=== PATIENT | male | born 1945 | race Caucasian/White ===

== ENCOUNTER 2019-10-23 08:34 | Outpatient (CLI) | payer MEDICARE, SELFPAY ==
--- NOTE | 2019-11-04 14:01 | SLEEP_ITS ---
Splint Night Sleep Study DATE OF STUDY: 10/23/2019 REQUESTING PHYSICIAN: Dr. Dennys Galvan. REASON FOR THE STUDY: Sleep apnea, unspecified. HISTORY: This patient is a 74-year-old male, 74 inches tall, weighing 260 pounds with a body mass index of 33.4. He has complaints of loud snoring, daytime fatigue, and excessive daytime sleepiness. He has had this problem starting over 10 years ago. His recorded him sleeping loudly and having apneas. His sleep is very poor quality. He has excessive mood instability with angriness after he does not sleep well. He also has chronic depression, has gained weight over the last 10 years. He rarely awakens from sleep feeling short of breath. He frequently awakens at night with heartburn and belching. He constantly snores loudly enough that others complain about it and constantly has trouble sleeping with a cold. He does not gasp for breath at night. He rarely sweats excessively at night or notices heart pounding irregularly at night. He constantly falls asleep during the day, constantly involuntarily, but not while driving. He frequently has loss of muscle tone with strong emotion. He occasionally has daytime difficulty due to excessive sleepiness. He does not feel paralyzed on waking or falling asleep. He frequently has vivid dreamlike scenes upon awakening or falling asleep. He is never afraid to go to sleep. He occasionally has nightmares. He occasionally remembers his dreams. He frequently has racing thoughts. He constantly feels sad, depressed, and anxious. He frequently has muscular tension. He occasionally kicks at night, has crawly achy feelings in the legs and has leg pain at night. He does not grind his teeth during sleep. He constantly is bothered by pain during the day, rarely is awakened by pain at night, constantly wakes up in the morning feeling stiff with sore achy muscles and pain in the neck and spine. He has memory problems, libido problems, concentration difficulties, and feels tense. Normal bedtime is between 9:30 and 10 p.m., falling asleep within 10 to 15 minutes waking at least 6 times at night. He will urinate with every awakening. He does not drink excessive amounts of fluids. He will lie awake anywhere from 15 minutes to 30 minutes trying to go back to sleep. He does not go out after 7:00 p.m. often and his social life is impacted by his excessive sleepiness. He does take naps. A short nap is not refreshing. He is drowsy in the morning for an hour or longer. MEDICAL COMORBIDITIES: Loud snoring, history of asthma, shortness of breath, depression, fatigue, history of prostate cancer, and low testosterone. MEDICATIONS: 1. Losartan 50 mg a day. 2. Aspirin 81 mg a day. 3. Diazepam 5 mg as needed for anxiety. 4. Ibuprofen 200 mg 2 tablets q.8 hours p.r.n. pain. 5. Methylphenidate 10 mg b.i.d. 6. Prilosec 20 mg daily. 7. Simvastatin 10 mg in the evening. 8. Trintellix 10 mg daily. HABITS: Never smoked tobacco. Caffeine, 2 to 3 cups in the morning. Alcohol none. DESCRIPTION OF THE STUDY: On the Dixon Sleepiness Scale, his score is 10. This was conducted as a split night nocturnal polysomnogram using the [employer] multiple channel system including EOG, EEG, submental EMG, EKG, nasal and oral airflow using thermistors and nasal pressure sensors, chest and abdominal belts, body position data, and pulse oximetry. This study was scored using CMS guidelines. During the baseline portion, the recording time was 156.4 minutes. Sleep time was 136 minutes. Sleep efficiency was 87%. Sleep latency was short at 7.9 minutes. There was no REM. The patient had 7 awakenings. He spent 12.5 minutes awake after sleep onset. Stage 1 sleep was 12.1%, stage 2 sleep 87.9%. No stage III and no stage REM.
== END 2019-10-23 08:35 | disposition home or self-care (01) ==
LOC: ANHCSM 08:35
DX: R06.83 Snoring (principal); G47.33 Obstructive sleep apnea (adult) (pediatric); Z68.33 Body mass index [BMI] 33.0-33.9, adult
CPT/HCPCS: 95811

== ENCOUNTER → 2019-10-30 13:09 | Outpatient (CLI) | payer MEDICARE, SELFPAY ==
--- NOTE | ~2019-10-30 | XR_ITS ---
EXAMINATION: XR hip RT min 2V DATE: 10/30/2019 13:41 INDICATION: Right hip pain post fall TECHNIQUE: Anteroposterior and cross-table lateral views of the right hip were obtained. COMPARISON: None. FINDINGS: Alignment is normal. No fracture. Mild chondrocalcinosis along the right femoral head. There is only minimal nonuniform joint space narrowing and tiny marginal osteophytes along the femoral head consist ent with very mild osteoarthritis. Surgical clips project over the pubis. Heterotopic ossicle project s over the central pelvis along with several smaller bilateral phleboliths. IMPRESSION: 1. Very mild right hip osteoarthritis. No acute osseous abnormality. Reviewed, dictated and finalized at location A.
== END ==
DX: M25.551 Pain in right hip (principal); C61 Malignant neoplasm of prostate; R29.898 Other symptoms and signs involving the musculoskeletal system; M54.5 Low back pain; M16.11 Unilateral primary osteoarthritis, right hip; W19.XXXA Unspecified fall, initial encounter
CPT/HCPCS: 73502

== ENCOUNTER 2019-12-05 07:48 | Outpatient (CLI) | payer MEDICARE, SELFPAY ==
--- NOTE | ~2019-12-05 | NM_ITS ---
EXAMINATION: NM ramiro stress w perfusion DATE: 12/05/2019 11:38 INDICATION: Shortness of breath TECHNIQUE: Rest images were obtained following intravenous administration of 10.9 mCi Tc99m tetrofosm in (Myoview). The patient was infused intravenously with Lexiscan (Regadenoson). Then, 33.3 mCi Tc99m tetrofosmin (Myoview) was administered intravenously, and stress images were obtained. Data was cadence nstructed into short axis and horizontal and vertical long axis SPECT images. Gated SPECT images were also obtained. COMPARISON: None. FINDINGS: There is no definite reversible or fixed perfusion abnormality to suggest ischemia or infar ction. There is normal left ventricular chamber size, wall motion and ejection fraction. Left ventr icular ejection fraction measures >70%. IMPRESSION: 1. Normal myocardial perfusion at rest and during stress. 2. Left ventricular ejection fraction measuring >70%. Reviewed, dictated and finalized at location A.
--- NOTE | 2019-12-05 08:52 | EST_ITS ---
Patient Info Name: Timmy Morocho Age: 74 years : 1945 Gender: Male Ht: 74 in Wt: 265 lbs BSA: 2.54 m2 Exam Date: 12/05/2019 9:02 AM Exam Location: [facility] Stress Patient Status: Outpatient Admit Date: 12/05/2019 Staff Ordering Physician: Tayla Dinero MD Attending Provider: Tayla Dinero MD Exercise Technologist: Kaylee Rosario RDCS Exercise Physician: Saji Rodriguez DO Exam Type: CA stress ramiro w NM Study Info Indications R06.02 - Shortness of breath A regadenoson stress test was performed. Summary 1. 1. Negative lexiscan stress test for ischemic ST changes by ECG criteria. 2. 2. Stable hemodynamics throughout the test. 3. 3. Nuclear scan to follow and will be reported separately. Please correlate with it. 4. 4. Patient informed of the above results. Protocol: Lexiscan Stress ECG Details Stage: REST Duration (min): 4 min : 57 sec HR (bpm): 74 SBP (mmHg): 130 DBP (mmHg): 76 Stage: REST Duration (min): 11 min : 6 sec HR (bpm): 72 SBP (mmHg): 130 DBP (mmHg): 76 Stage: STAGE 1 Duration (min): 1 min : 0 sec HR (bpm): 76 SBP (mmHg): 123 DBP (mmHg): 82 Stage: RECOVERY Duration (min): 1 min : 0 sec HR (bpm): 80 SBP (mmHg): 128 DBP (mmHg): 81 Stage: RECOVERY Duration (min): 2 min : 0 sec HR (bpm): 78 SBP (mmHg): 128 DBP (mmHg): 81 Stage: RECOVERY Duration (min): 3 min : 0 sec HR (bpm): 76 SBP (mmHg): 128 DBP (mmHg): 81 Stage: RECOVERY Duration (min): 3 min : 43 sec HR (bpm): 76 SBP (mmHg): 117 DBP (mmHg): 83 Rest HR: 72 bpm Peak HR: 81 bpm Rest Sys BP: 130 mmHg Peak Sys BP: 128 mmHg Max Pred HR: 146 bpm % Max Pred HR: 55 % Target HR: 124 bpm Max RPP: 10,368 bpm*mmHg Termination Reason: Completed protocol Cardiac Symptoms: Shortness of breath Total Time: 1 min : 0 sec Rest Mooney BP: 76 mmHg Peak Mooney BP: 81 mmHg Total Dose: 0.4 mg Resting ECG Sinus rhythm, IRBBB, cannot r/o septal infarct, age indeterminate, low voltage in precordial leads. Stress ECG No ST changes. Arrhythmias None. Report Signatures
--- NOTE | 2019-12-09 13:48 | WPDSIXMINUTE ---
Six Minute Walk Six Minute Walk: DOS: 12/05/2019 REQUESTING: Dr Dinero REASON FOR TESTING: Exertional dyspnea SIX MINUTE WALK This test was conducted per ATS guidelines. Initial saturation was 95%, heart rate 82. The patient walked for 6 minutes without stopping, saturation ranged from 89-98%. Pulse ranged from 81-97. Distance walked was 1000 ft/305 meters. IMPRESSION: Desaturation without kashif hypoxemia. Patient does not require supplemental oxygen with exertion. Distance walked is at adequate for age.
--- NOTE | 2019-12-09 13:52 | WPDPFTINT ---
PFT Interpretation PFT Interpretation: DOS: 12/05/2019 REQUESTING: Dr Saji Rodriguez REASON FOR TESTING: Dyspnea PULMONARY FUNCTION TESTS Results are reproducible and reliable. Spirometry: FEV1 107%, FVC 101%, FEV1% 77%, all normal. No bronchodilator was given. Lung volumes: TLC 105%, normal. RV normal. Normal airway resistance. Diffusion: DLCO 74%, normal. Flow volume loop: Abnormal inspiratory loop suggestive of an extrathoracic process, possible vocal cord dysfunction. the initial portion of the inspiration is normal then rapidly drops off. IMPRESSION: Normal spirometry, lung volumes, and diffusion. Abnormal flow volume loop suggestive of transient inducible laryngeal obstruction such as vocal cord dysfunction. Tayla Dinero MD
== END 2019-12-05 07:49 | disposition home or self-care (01) ==
PROVIDERS: Visit Provider Internal Medicine Critical Care Medicine
DX: R06.02 Shortness of breath (principal)
CPT/HCPCS: 78452; 93017; 94618; A9502; J2785

== ENCOUNTER 2020-04-23 12:51 | Inpatient (IN) | payer MEDICARE, SELFPAY ==
--- NOTE | ~2020-04-23 | XR_ITS ---
EXAMINATION: XR chest 1V portable 04/23/2020 15:33 INDICATION: Shortness of breath and cough PROCEDURE: AP portable chest COMPARISON: 07/08/2009 FINDINGS: The lungs are clear. The cardiomediastinal silhouette is within normal limits. There are no pleural effusions. There is no pneumothorax suspected. Old healed left clavicular fracture. IMPRESSION: 1: NO ACUTE CARDIOPULMONARY DISEASE. Reviewed, dictated and finalized at location B.
--- NOTE | ~2020-04-23 | XR_ITS ---
XR hip LT 2V w AP pelvis 04/23/2020 13:58 Indication: Left hip pain after fall Procedure: AP pelvis and 2 views left hip Comparison: No prior studies for comparison. Findings: There is a comminuted displaced left femoral intertrochanteric fracture with varus angulati on. Moderate lower lumbar spondylosis. Pelvic rings are intact. No significant soft tissue abnormalit y. Impression: 1: Comminuted displaced left femoral intertrochanteric fracture with varus angulation. Reviewed, dictated and finalized at location B. Impression: 1: Comminuted displaced left femoral intertrochanteric fracture with varus angu lation.
--- NOTE | ~2020-04-23 | XR_ITS ---
EXAMINATION: XR surgery orthopedic DATE: 04/24/2020 10:55 INDICATION: Intertrochanteric fracture of proximal left femur. TECHNIQUE: 5 intraoperative fluoroscopic views of left hip were obtained. I was not present. Fluorosc opy exposure time was 116 seconds. COMPARISON: Left hip radiographs 04/23/2020 FINDINGS: There is a comminuted intertrochanteric fracture of proximal left femur. The main distal fr acture fragment demonstrates near-anatomic alignment. There is internal fixation with antegrade intra medullary dwight, femoral head/neck screw, and distal interlocking screw. IMPRESSION: 1. Comminuted intertrochanteric fracture of proximal left femur status post open reduction internal f ixation. Reviewed, dictated and finalized at location A. IMPRESSION: 1. Comminuted intertrochanteric fracture of proximal left femur status post ope n reduction internal fixation.
[2020-04-23 13:05] VITALS: BP 174/104; PULSE 75; RESP 18; TEMP 36.9; O2SAT 95
--- NOTE | 2020-04-23 13:28 | ED.LOWEXIN ---
HPI - Extremity Injury (Lower) General Chief Complaint: Extremity Injury, Lower Stated Complaint: left leg and hip pain Time Seen by Provider: 04/23/20 13:00 Source: patient Mode of arrival: ambulatory Limitations: no limitations History of Present Illness HPI Narrative: Patient is a 75-year-old who presents per EMS from home for evaluation of left hip injury patient was ambulating and notes that he tripped secondary to left foot drop which is chronic in nature patient on arrival to emergency department notes minimal to no pain but the pain does worsen with activity and movement patient also notes difficulty with using the left leg patient notes pain to the left hip that radiates into the thigh patient denies other injuries or complaints specifically no syncope loss of consciousness Related Data Home Medications Medication Instructions Recorded Confirmed aspirin 81 mg chewable tablet 81 mg PO DAILY 11/24/19 03/09/20 diazepam 5 mg tablet 5 mg PO BID PRN 11/24/19 03/09/20 ibuprofen 200 mg tablet 200 mg PO Q6H PRN 11/24/19 03/09/20 losartan 50 mg tablet 50 mg PO DAILY 11/24/19 03/09/20 simvastatin 10 mg tablet 10 mg PO DAILY 11/24/19 03/09/20 Allergies Allergy/AdvReac Type Severity Reaction Status Date / Time Cephalosporins Allergy Severe pain Verified 04/23/20 13:17 Penicillins Allergy Severe Difficulty Verified 04/23/20 13:17 Breathing Review of Systems Review of Systems: All systems reviewed & are unremarkable except as noted in HPI and below PMFSH Past Medical History Medical History Asthma At risk for falls Constipation Depression Dyspnea Elevated blood pressure reading High cholesterol History of MRSA infection Left leg weakness Left sciatic nerve pain Obstructive sleep apnea Prostate cancer Shortness of Breath Sleep apnea Snoring Surgical History Surgical History FH: total knee replacement H/O arthroscopy of knee H/O laminectomy Social History Social History Smoking status: Never smoker Alcohol intake: former Substance use: never Additional living arrangements comments: 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 HEAD: Normocephalic, atraumatic. EYES: PERRLA and EOMI. ENT: Nares clear, no rhinorrhea or epistaxis. Mucous membranes moist. Oropharynx without tonsillar hypertrophy exudate or other lesions. NECK: Supple. No adenopathy or masses. CHEST: Clear to auscultation. No respiratory distress. No wheezes rales or rhonchi HEART: Regular rate and rhythm. No murmur heard. Normal peripheral pulses. ABDOMEN: Soft, nontender, nondistended. EXTREMITIES: Tenderness of the left hip with shortening and external rotation. SKIN: Warm, dry, no rash. NEURO: No focal deficits. Alert and oriented x3. Cranial nerves II through XII grossly intact PSYCH: Normal mood and affect. Course Course Emergency Course: Patient will be admitted to the hospital with hospitalist admission with orthopedic surgery consult patient in the room hemodynamically stable and is comfortable with this plan Consultations Consultation #1: Spoke with orthopedic surgery at [facility] who was unable to take care of the patient. And recommended seeing if a physician orthopedist at [facility] can facilitate caring for the patient Date: 04/23/20 Time: 15:25 Consultation #2: Discussed case with Dr. Cee orthopedist who has agreed to accept the patient Date: 04/23/20 Time: 15:25 Vital Signs Vital signs: Vital Signs Temperature 98.5 F 04/23/20 13:05 Pulse Rate 75 04/23/20 13:05 Respiratory Rate 18 04/23/20 13:05 Blood Pressure 174/104 H 04/23/20 13:05 Pulse Oximetry 95 04/23/20 13:05
--- NOTE | 2020-04-23 15:18 | ECG_ITS ---
Measurements Intervals [place] Rate: 76 P: -12 DC: 196 QRS: -44 QRSD: 70 T: -13 QT: 294 QTc: 332 Interpretive Statements SINUS RHYTHM RSR' IN V1 OR V2, CONSIDER RIGHT VENTRICULAR HYPERTROPHY OR RIGHT VCD BORDERLINE T WAVE ABNORMALITY- INFERIOR LEADS BASELINE ARTIFACT- I, II, AVR, AVL, V1 BORDERLINE ECG Electronically Signed On 04-23-2020 15:48:51 CDT by Saji Rodriguez D.O.
[2020-04-23] MEDS: MORPHINE SULFATE (*CRX) 4 MG/ML INJ IV PUSH ×3 (15:53→20:14)
[2020-04-23 15:57] LABS: Basophils Absolute Auto 0.1 K/mm3 (0.0-0.1); Basophils Percent Auto 0.7 % (0.2-1.2); Eosinophils Absolute Auto 0.2 K/mm3 (0-0.3); Eosinophils Percent Auto 1.8 % (0-4.4); Hematocrit 40.9 % (42.0-52.0); Hemoglobin 14.2 g/dL (14.0-18.0); Immature Granulocyte Absolute 0.04 K/mm3 (0.00-0.031); Immature Granulocyte Percent A 0.4 % (0-0.5); Lymphocytes Absolute Auto 0.94 K/mm3 (0.9-3.2); Lymphocytes Percent Auto 10.2 % (18.3-44.2); Mean Corpuscular HGB Conc 34.7 g/dl (32-36); Mean Corpuscular Volume 89.3 fl (80-100); Mean Platelet Volume 9.6 fl (7.4-10.4); Monocytes Absolute Auto 0.7 K/mm3 (0.1-0.6); Monocytes Percent Auto 7.5 % (2.6-8.5); Neutrophils Absolute Auto 7.3 K/mm3 (1.3-6.7); Neutrophils Percent Auto 79.4 % (45.5-73.1); Platelet Count Result 215 k/mm3 (150-375); Red Blood Count 4.58 M/mm3 (4.6-6.20); Red Cell Distribution Width 13.1 % (11.5-14.5); White Blood Count 9.2 K/mm3 (4.5-10.0)
[2020-04-23 16:00] VITALS: BP 158/96; PULSE 93; RESP 18; O2SAT 94
[2020-04-23 16:06] LABS: Prothrombin Time 12.9 Seconds (11.1-14.7)
[2020-04-23 16:07] LABS: Partial Thromboplastin Time 26.3 SECONDS (22.3-36.8)
[2020-04-23 16:13] LABS: Alanine Aminotransferase 35 U/L (4-50); Albumin Level 4.2 g/dL (3.5-5.1); Alkaline Phosphatase 78 U/L (38-126); Anion Gap 8 mmol/L (8-16); Aspartate Amino Transferase 41 U/L (17-59); Bilirubin,Total 0.8 mg/dL (0.2-1.3); Blood Urea Nitrogen 28 mg/dL (9-20); Calcium 9.5 mg/dL (8.4-10.2); Carbon Dioxide 24 mmol/L (22-30); Chloride 100 mmol/L (98-107); Estimated CRCL calculation 98 ml/min; Estimated Glomerular Filt Rate > 60; Glucose 107 mg/dL (75-110); Potassium 4.6 mmol/L (3.4-5.0); Sodium 132 mmol/L (137-145)
--- NOTE | 2020-04-23 16:26 | PM.IMHP ---
H&P: HPI History of Present Illness Date/Time: 04/23/20 16:26 Chief complaint: Closed left hip fracture Narrative: Timmy Morocho is a 75 year old male with PMHx significant for HTN, LLE weakness, Asthma, L sciatica, RICH, Hyperlipidemia, patient had mechanical fall at home he has L foot drop and tripped with the carpet, fell over his L leg then he noticed that it was pointing a different direction and was very painful. Patient was unable to stand on his own. Was brought to ED where he was found to have a L hip fracture. Patient has been in his usual state of health, no LOC, no chest pain, no sob, no cough, no sputum production, no fevers, no rigors, no chills, no leg swelling, no abdominal pain/n/v/diarrhea. Review of Systems Review of Systems: Narrative: Was on his usual state of health, had fall at home, mechanical, no other complains. Constitutional: Constitutional: Reports as per HPI and Reports no additional constitutional complaints Eyes: Eyes: Reports as per HPI and Reports no additional eye complaints ENT: Reports system reviewed and no additional complaints, except as documented and Reports as per HPI Cardiovascular: Cardiovascular: Reports as per HPI and Reports no additional cardiovascular complaints Respiratory: Respiratory: Reports as per HPI and Reports no additional respiratory complaints Gastrointestinal: Gastrointestinal: Reports as per HPI and Reports no additional gastrointestinal complaints Musculoskeletal: Musculoskeletal: Reports as per HPI Neurologic: Reports system reviewed and no additional complaints, except as documented and Reports as per HPI [facility] Past Medical History Medical History Asthma At risk for falls Constipation Depression Dyspnea Elevated blood pressure reading High cholesterol History of MRSA infection Left leg weakness Left sciatic nerve pain Obstructive sleep apnea Prostate cancer Shortness of Breath Sleep apnea Snoring Surgical History Surgical History FH: total knee replacement H/O arthroscopy of knee H/O laminectomy Social History Social History Smoking status: Never smoker Alcohol intake: never Substance use: never Additional living arrangements comments: 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; 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, 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 Gender identity (if verbalized by the patient): Male Spiritual care concerns: No Meds Home Medications and Allergies Home Medications Medication Instructions Recorded Confirmed Type aspirin 81 mg chewable tablet 81 mg PO HS 11/24/19 04/23/20 History simvastatin 10 mg tablet 10 mg PO HS 11/24/19 04/23/20 History albuterol sulfate 90 mcg/actuation 1 puff INHALATION Q6H PRN 30 Days 03/09/20 04/23/20 Rx aerosol inhaler #8.5 gm budesonide-formoterol HFA 160 2 puff INHALATION Q12H 30 Days 03/09/20 04/23/20 Rx mcg-4.5 mcg/actuation aerosol #10.2 gm inhaler dextroamphetamine-amphetamine 10 mg PO DAILY 04/23/20 04/23/20 History [Adderall XR] diazepam 2 mg PO BID 04/23/20 04/23/20 History escitalopram oxalate [Lexapro] 5 mg PO DAILY 04/23/20 04/23/20 History fluticasone propionate [Flonase 1 spray INTRANASAL BID 04/23/20 04/23/20 History Allergy Relief] lisinopril 10 mg PO DAILY 04/23/20 04/23/20 History tizanidine 4 mg PO BID PRN 04/23/20 04/23/20 History Allergies Allergy/AdvReac Type Severity Reaction Status Date / Time Cephalosporins Allergy Severe pain Verified 04/23/20 13:17 Penicillins Allergy Severe Difficulty Verified 04/23/20 13:17 Breathing Vital Signs Vital Signs - 24 hr 04/23/20 13:05 Temperature 98.5 F Pulse Rate 75 Respiratory Rate 18 Blood Pressure 174/104 H Pulse Oximetry 95 Exam Narrative: Exam Narrative: Well nourished, well developed, well appearing, in bed in no acute
--- NOTE | 2020-04-23 16:59 | PC.NURSE ---
Called to give report to nurse. Was informed by Arcelia that she will have to call you back .
[2020-04-23 18:00] VITALS: BP 157/100; PULSE 90; RESP 20; TEMP 37; O2SAT 97; BMI 34.2
[2020-04-23] MEDS: LACTATED RINGERS 1,000 ML 75 ML IV CONT (18:12)
--- NOTE | 2020-04-23 18:32 | ADMGEN ---
This patient, Timmy Morocho, was admitted to 2 Medical Room 255-. Patient/family oriented to hospital policies and general routines including ID bracelet, bed and alarms, visiting hours, pain management, procedures, bathroom and other care routines, personal items, smoking policy, room service/diet, and visiting hours. Valuables list has been completed. Information on how to activate the Rapid Response Team has been discussed. Patient/Family are encouraged to report perceived risks to care and to ask questions if they do not understand what they are told or what they should do.
--- NOTE | 2020-04-23 19:04 | WPDANESEPP ---
Anes - Eval Pre Procedure Procedure: Operation Date: 04/24/20 09:30 Proposed Procedures p Left Intertrochanteric Nail - Nguyễn Cee MD Date/Time: 04/23/20 19:04 Pre Op Diagnosis: Closed left hip fracture Patient Data Age: 75 Gender: M Height: 6 ft 2 in Weight: 121.1 kg Last Vital Signs Temp 98.6 F 04/23/20 18:00 Pulse 90 04/23/20 18:00 Resp 20 04/23/20 18:00 BP 157/100 H 04/23/20 18:00 Pulse Ox 97 04/23/20 18:00 Allergies Allergy/AdvReac Type Severity Reaction Status Date / Time Cephalosporins Allergy Severe pain Verified 04/23/20 13:17 Penicillins Allergy Severe Difficulty Verified 04/23/20 13:17 Breathing Home Medications Medication Instructions Recorded Confirmed Type aspirin 81 mg chewable tablet 81 mg PO HS 11/24/19 04/23/20 History simvastatin 10 mg tablet 10 mg PO HS 11/24/19 04/23/20 History albuterol sulfate 90 mcg/actuation 1 puff INHALATION Q6H PRN 30 Days 03/09/20 04/23/20 Rx aerosol inhaler #8.5 gm budesonide-formoterol HFA 160 2 puff INHALATION Q12H 30 Days 03/09/20 04/23/20 Rx mcg-4.5 mcg/actuation aerosol #10.2 gm inhaler dextroamphetamine-amphetamine 10 mg PO DAILY 04/23/20 04/23/20 History [Adderall XR] diazepam 2 mg PO BID 04/23/20 04/23/20 History escitalopram oxalate [Lexapro] 5 mg PO DAILY 04/23/20 04/23/20 History fluticasone propionate [Flonase 1 spray INTRANASAL BID 04/23/20 04/23/20 History Allergy Relief] lisinopril 10 mg PO DAILY 04/23/20 04/23/20 History tizanidine 4 mg PO BID PRN 04/23/20 04/23/20 History Laboratory Tests 04/23/20 04/23/20 04/23/20 15:39 15:39 15:39 WBC 9.2 K/mm3 K/mm3 (4.5-10.0) RBC 4.58 M/mm3 L M/mm3 (4.6-6.20) Hgb 14.2 g/dL g/dL (14.0-18.0) Hct 40.9 % L % (42.0-52.0) MCV 89.3 fl fl (80-100) MCH 31.0 pg pg (26-34) MCHC 34.7 g/dl g/dl (32-36) RDW 13.1 % % (11.5-14.5) Plt Count 215 k/mm3 k/mm3 (150-375) MPV 9.6 fl fl (7.4-10.4) Immature Gran % (Auto) 0.4 % % (0-0.5) Neut % (Auto) 79.4 % H % (45.5-73.1) Lymph % (Auto) 10.2 % L % (18.3-44.2) [place] % (Auto) 7.5 % % (2.6-8.5) Eos % (Auto) 1.8 % % (0-4.4) Baso % (Auto) 0.7 % % (0.2-1.2) Lymph # (Auto) 0.94 K/mm3 K/mm3 (0.9-3.2) [place] # (Auto) 0.7 K/mm3 H K/mm3 (0.1-0.6) Eos # (Auto) 0.2 K/mm3 K/mm3 (0-0.3) Baso # (Auto) 0.1 K/mm3 K/mm3 (0.0-0.1) Abs Immat Gran (auto) 0.04 K/mm3 H K/mm3 (0.00-0.031) Absolute Neuts (auto) 7.3 K/mm3 H K/mm3 (1.3-6.7) Absolute Nucleated RBC 0.0 K/mm3 K/mm3 (0.0-0.012) Nucleated RBC % 0.0 % % (0.0-0.2) PT INR APTT Sodium 132 mmol/L L mmol/L (137-145) Potassium 4.6 mmol/L mmol/L (3.4-5.0) Chloride 100 mmol/L mmol/L (98-107) Carbon Dioxide 24 mmol/L mmol/L (22-30) Anion Gap 8 mmol/L mmol/L (8-16) BUN 28 mg/dL H mg/dL (9-20) Creatinine 0.80 mg/dL mg/dL (0.7-1.3) Estim Creat Clear Calc 98 ml/min ml/min Estimated GFR > 60 (59 - ) Glucose 107 mg/dL mg/dL (75-110) Calcium 9.5 mg/dL mg/dL (8.4-10.2) Total Bilirubin 0.8 mg/dL mg/dL (0.2-1.3) AST 41 U/L U/L (17-59) ALT 35 U/L U/L (4-50) Alkaline Phosphatase 78 U/L U/L (38-126) Total Protein 7.0 g/dL g/dL (6.3-8.2) Albumin 4.2 g/dL g/dL (3.5-5.1) Blood Type A Positive Antibody Screen Negative 04/23/20 15:39 WBC RBC Hgb Hct MCV MCH MCHC RDW Plt Count MPV Immature Gran % (Auto) Neut % (Auto) Lymph % (Auto) [place] % (Auto) Eos % (Auto) Baso % (Auto)
[2020-04-23] MEDS: lisinopriL 10 MG TABLET PO (20:10)
[2020-04-23] MEDS: diazePAM (*CRX) 2 MG TABLET PO (20:10)
[2020-04-23] MEDS: SIMVASTATIN 10 MG TABLET PO (20:10)
[2020-04-23] MEDS: FAMOTIDINE 20 MG/2 ML VIAL IV PUSH (20:10)
[2020-04-23 22:00] VITALS: BP 143/86; PULSE 86; RESP 16; TEMP 36.7; O2SAT 96
[2020-04-23] MEDS: HYDROmorphone HCL INJ (*CRX) 1 MG/ML SYR IV PUSH (22:55)
[2020-04-23] MEDS: DEXTROSE 5%/LACTATED RINGERS 1,000 ML 75 ML IV CONT (22:56)
[2020-04-24] VITALS (14 sets, daily range): BP systolic 121–162; BP diastolic 59–96; PULSE 72–100; RESP 12–20; TEMP 36.4–37.4; O2SAT 92–100
[2020-04-24] MEDS: diazePAM (*CRX) 5 MG TABLET PO (00:47)
[2020-04-24 08:05] LABS: Hematocrit 36.5 % (42.0-52.0); Hemoglobin 12.6 g/dL (14.0-18.0); Mean Corpuscular HGB Conc 34.5 g/dl (32-36); Mean Corpuscular Hemoglobin 31.2 pg (26-34); Mean Corpuscular Volume 90.3 fl (80-100); Mean Platelet Volume 9.7 fl (7.4-10.4); Platelet Count Result 187 k/mm3 (150-375); Red Blood Count 4.04 M/mm3 (4.6-6.20); Red Cell Distribution Width 13.2 % (11.5-14.5); White Blood Count 7.5 K/mm3 (4.5-10.0)
--- NOTE | 2020-04-24 08:30 | PM.CNOR ---
Assessment and Plan Additional Plan This gentleman is a 75-year-old male who I have seen before as the patient who was walking in the kitchen to get a medial caught his toe of his left foot on the floor causing him to fall and sustain a comminuted 4 part left intertrochanteric hip fracture. This is displaced. He was brought to the emergency room. His past medical history is significant for severe back problems. He developed a footdrop on the left in 1969 and in 1973 he had a lumbar decompression. Because of worsening symptoms in the past few years 3 years ago he underwent a and extensive laminectomy in his lumbar spine because of recurrence of severe foot drop on the left. 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 He has foot drop. He has numbness globally in the left foot. This footdrop he believes contributed to his falling yesterday. His past medical history is significant for allergy to penicillin which he states was anaphylactic shock as a child. He has a history of asthma as a child. He states the listing of cephalosporin as an allergy is inaccurate as he has never had an allergic reaction to cephalosporin and he believes they voiced been avoided. Two years ago he was diagnosed with prostate cancer and had external beam therapy and Lupron treatment to lower his testosterone levels. As a result he has suffered from fatigue and he had a cardiac stress test in December of this year to evaluate that fatigue and it showed ejection fraction greater than 70% and no reversible ischemia. He has a history of bilateral knee replacements in approximately 1999. 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 He has a history of hypertension. On physical examination he is alert and oriented. He is obese with weight of 121 kg and reported BMI is 34.3. He has numbness in the left foot top and bottom. He has partial numbness in the medial side of his ankle. He has present great toe dorsiflexion but absent ankle dorsiflexion actively. He has active plantar flexion. Absent dorsalis pedis pulse on the left but 2+ posterior tibial artery pulse on the left is present with excellent warmth in color to his left lower extremity. He has an abrasion over the front of his left knee with a Band-Aid on it. The abrasion is approximately 1/2 inch in diameter over the inferior pole of patella. He apparently landed on this point when he sustained his hip fracture. He states that his knee is not hurting him and he had no tenderness about the knee of significance and no effusion was noted on palpation. The left lower extremity is externally rotated 90? and shortened. He has severe pain in the left hip and proximal thigh with any slight movement. He denies any other injury or symptom. He does wear a leaf spring type AFO chronically and I have advised him to have that brought in. He does not use any gait 8 at home. He lives with his . Impression patient has displaced comminuted 4 part left intertrochanteric hip fracture and I have recommended open reduction internal fixation with a trochanteric nail type device. I have discussed risks of surgery with him in detail. He is at higher risk for infection for number of reasons. We will plan to use vancomycin and Levaquin for g positive and g negative coverage perioperatively. He has no history of tendon rupture. Risk of medical complications and risk of mortality was discussed. Risk of surgical complications such as nonunion malunion infection blood clots were discussed. He has no personal or family history of DVT. My preference for this gentleman with his obesity would be to use Eliquis for 6 weeks postoperatively 2.5 mg twice daily for DVT prophylaxis.
[2020-04-24] MEDS: FAMOTIDINE 20 MG/2 ML VIAL IV PUSH (08:47)
[2020-04-24] MEDS: ESCITALOPRAM OXALATE 5 MG TABLET PO (08:47)
[2020-04-24] MEDS: diazePAM (*CRX) 2 MG TABLET PO ×2 (08:47→21:11)
--- NOTE | 2020-04-24 09:00 | PC.NURSE ---
Pt to OR via hospital bed, IV intact. Report called to [facility] [place].
--- NOTE | 2020-04-24 09:12 | WPDANESEFPP ---
Anes - Eval Final PreProcedure Day of Procedure 04/24/20 09:12 Patient weight: obese Heart: regular rate and rhythm Lungs: clear to auscultation and normal air movement Airway: Mallampati scale class IV Neurological: alert and oriented Last oral intake: >/= 8 hours ASA classification: III Emergent: no Anesthetic plan: proceed Anesthesia type and monitoring: general ETT and standard monitoring Informed Consent: The patient's anesthetic plan and its attendant risks and benefits were discussed with the patient/family/POA. Questions were solicited and answers provided to the satisfaction of the patient/family/POA.
[2020-04-24 09:39] LABS: Vitamin D 25 Hydroxy 27.6 ng/mL
[2020-04-24] MEDS: LACTATED RINGERS 1,000 ML 30 ML IV CONT (11:00)
[2020-04-24] MEDS: fentaNYL CITRATE INJ (*CRX) 100 MCG/2 ML VIAL 25 MCG IV PUSH ×4 (11:10→11:30)
--- NOTE | 2020-04-24 11:14 | P.OP_ITS ---
Procedure Note - Detailed Date of procedure: 04/24/20 Pre-op diagnosis: Closed left hip fracture Four part left intertrochanteric hip fracture displaced Post-op diagnosis: same Procedure performed: open reduction internal fixation of displaced 4 part left intertrochanteric hip fracture with Biomet trochanteric nail device Description of procedure: patient was brought to the operating room and general anesthesia was administered. The left hip and thigh were carefully scrubbed with the Esteban prep cloth. He was moved to the fracture table and the left foot padded and placed in the traction boot. The right hip was flexed and abducted out of the way. Longitudinal traction was applied and the leg placed in neutral rotation and we evaluated the fracture reduction under fluoroscopy and shots saw that we had anatomic reduction between the neck and shaft. There was persistent mild displacement of the lesser and greater trochanteric fragments. The left hip was prepped with DuraPrep and covered with the IO band impregnated shower curtain. A 2 in incision was made proximal to greater trochanter. A guide pin was inserted into the greater trochanter down the canal and optimal position confirmed on biplanar fluoroscopy and we made a starter hole with the starter Reamer and then inserted the long guide dwight. The canal was reamed to 13 mm which gave significant chatter. Proximal femur reamed to 16 mm. The Biomet trochanteric nail 22 cm 11 mm diameter dwight was inserted under manual pressure to the appropriate depth. A guide pin was then inserted into the center of the femoral head on AP and lateral views this was reamed and a 115 mm telescoping lag screw was inserted to about 8 mm from subchondral bone and obtained excellent purchase. Sliding sleeve was impacted flush with the lateral cortex a nd locked with a set screw. A single distal interlocking screw was placed in the static mode completing the fixation. Proper placement of implants was confirmed fluoroscopically. Traction was taken off the leg. Wounds were irrigated with antibiotic solution closed with 0 Vicryl 2 O Vicryl and glue EBL was about 200 cc. He received 750 mg of Levaquin and 1750 mg of vancomycin preoperatively as well as 1 g of tranexamic acid. There were no known complications. He tolerated anesthesia well and he will be transferred postoperatively to his medical surgical room. Implants: Biomet PTN nail Anesthesia: GLMA Surgeon: Nguyễn Cee MD Plastic Surgery Assistant: Esa Estimated blood loss (mL): 200 Drains: No Packing: No Pathology: none sent Complications: No immediate complications Condition: stable Disposition: PACU
--- NOTE | 2020-04-24 11:29 | PM.IMPN ---
Progress Note: A&P Assessment and Plan (1) Closed fracture of left hip: Code(s): S72.002A - Fracture of unspecified part of neck of left femur, initial encounter for closed fracture Status: Acute Assessment and Plan: Going for surgery this morning. Will follow ortho rec (2) HTN (hypertension): Code(s): I10 - Essential (primary) hypertension Status: Acute Assessment and Plan: Continue home meds Continue to monitor (3) Left leg weakness: Code(s): R29.898 - Other symptoms and signs involving the musculoskeletal system Status: Acute Assessment and Plan: Chronic as a result from multiple surgeries secondary to prosthetic knee infection. (4) Obstructive sleep apnea: Code(s): G47.33 - Obstructive sleep apnea (adult) (pediatric) Status: Acute Assessment and Plan: CPAP at night time (5) Shortness of Breath: Code(s): R06.02 - Shortness of breath Status: Acute Assessment and Plan: Resolved. Subjective Date/time seen: 04/24/20 11:29 No new issues overnight, patient has been NPO status, iv fluids have been running, will go for surgery today. Review of Systems Review of Systems: All systems reviewed & are unremarkable except as noted in HPI and below (Fall, L hip fx.) Constitutional: Constitutional: Reports as per HPI and Reports no additional constitutional complaints Eyes: Eyes: Reports as per HPI and Reports no additional eye complaints ENT: Reports system reviewed and no additional complaints, except as documented and Reports as per HPI Cardiovascular: Cardiovascular: Reports as per HPI and Reports no additional cardiovascular complaints Respiratory: Respiratory: Reports as per HPI and Reports no additional respiratory complaints Gastrointestinal: Gastrointestinal: Reports as per HPI and Reports no additional gastrointestinal complaints Musculoskeletal: Comments: Mechanical fall, L hip fx Integumentary/Breasts: Skin/Breast: Reports system reviewed and no additional complaints, except as docu and Reports as per HPI Neurologic: Reports system reviewed and no additional complaints, except as documented and Reports as per HPI Exam Narrative: Exam Narrative: Well nourished, well developed, well appearing in no acute distress. Const: General: comfortable, no acute distress, alert and awake Nutritional Appearance: well nourished HENMT: Head: normal to inspection and normocephalic Ears: hearing grossly normal bilaterally General nose exam: Normal external nose present Face and sinus: normal facial exam Eyes: General: appearance normal, both eyes and all related structures Pupils: Equal, round and reactive pupils present EOM: EOMs intact bilaterally Neck: Neck: normal visual inspection, full ROM, no lymphadenopathy and no JVD Lymphatic: no lymphadenopathy noted Resp: Effort & Inspection: normal respiratory effort Auscultation: clear to auscultation bilaterally Cardio: Jugular venous distension: no JVD Rate: regular rate Rhythm: regular rhythm Heart sounds: S1 normal heart sound present and S2 normal heart sound present GI: Inspection: normal to inspection GI Palp: Yes Soft to palpation and Yes No hepatosplenomegaly present Auscultation: normal bowel sounds Skin: General skin exam: normal color Trauma: no lacerations or abrasions Wounds: no wounds Neuro: General: patient oriented x3 Cranial nerves: Yes CN's II-XII intact bilaterally and Yes Equal, round and reactive pupils present Motor exam (neuro): 5/5 motor strength present throughout Sensory Exam: Sensory deficit (Neuro) (L foot drop chronic.) Objective Data Vital Signs Vital Signs: Vital Signs - 24 hr 04/23/20 13:05 04/23/20 16:00 04/23/20 18:00 Temperature 98.5 F 98.6 F Pulse Rate 75 93 90 Respiratory Rate 18 18 20 Blood Pressure 174/104 H 158/96 H 157/100 H Pulse Oximetry 95 94 97 04/23/20 22:00 04/24/20 02:00 04/24/20 05:45 Temperature 98.1
--- NOTE | 2020-04-24 13:00 | PC.NURSE ---
Pt returned from OR via hospital bed, IV intact. Report from [facility] [place].
[2020-04-24] MEDS: ACETAMINOPHEN 500 MG TABLET 1000 MG PO ×2 (14:17→17:53)
[2020-04-24] MEDS: oxyCODONE HCL (*CRX) 5 MG TAB IR PO ×3 (14:18→21:11)
[2020-04-24] MEDS: DEXTROSE 5%/LACTATED RINGERS 1,000 ML 75 ML IV CONT (17:52)
[2020-04-24] MEDS: SENNA/DOCUSATE SODIUM TABLET 2 TAB PO (17:53)
[2020-04-24] MEDS: FLUTICASONE PROPIONATE 0.05% NA SPR 16 GM BTL (*BKC) 1 SPRAY NASAL (17:53)
[2020-04-24] MEDS: FAMOTIDINE 20 MG TABLET PO (21:11)
[2020-04-24] MEDS: SIMVASTATIN 10 MG TABLET PO (21:11)
[2020-04-24] MEDS: ASPIRIN 81 MG CHEWABLE TABLET PO (21:11)
[2020-04-25] VITALS (8 sets, daily range): BP systolic 110–134; BP diastolic 59–71; PULSE 77–85; RESP 16–19; TEMP 36.3–37.4; O2SAT 91–96
[2020-04-25] MEDS: ACETAMINOPHEN 500 MG TABLET 1000 MG PO ×4 (00:34→17:26)
[2020-04-25] MEDS: oxyCODONE HCL (*CRX) 5 MG TAB IR PO ×6 (00:34→20:56)
[2020-04-25 05:22] LABS: Basophils Percent Auto 0.1 % (0.2-1.2); Hematocrit 32.7 % (42.0-52.0); Hemoglobin 11.2 g/dL (14.0-18.0); Immature Granulocyte Absolute 0.04 K/mm3 (0.00-0.031); Immature Granulocyte Percent A 0.4 % (0-0.5); Lymphocytes Absolute Auto 0.54 K/mm3 (0.9-3.2); Lymphocytes Percent Auto 5.1 % (18.3-44.2); Mean Corpuscular HGB Conc 34.3 g/dl (32-36); Mean Corpuscular Hemoglobin 30.6 pg (26-34); Mean Corpuscular Volume 89.3 fl (80-100); Mean Platelet Volume 9.6 fl (7.4-10.4); Monocytes Absolute Auto 0.9 K/mm3 (0.1-0.6); Monocytes Percent Auto 8.4 % (2.6-8.5); Neutrophils Absolute Auto 9.2 K/mm3 (1.3-6.7); Platelet Count Result 189 k/mm3 (150-375); Red Blood Count 3.66 M/mm3 (4.6-6.20); Red Cell Distribution Width 12.9 % (11.5-14.5); White Blood Count 10.6 K/mm3 (4.5-10.0)
[2020-04-25 06:00] LABS: Anion Gap 7 mmol/L (8-16); Blood Urea Nitrogen 17 mg/dL (9-20); Calcium 9.2 mg/dL (8.4-10.2); Carbon Dioxide 26 mmol/L (22-30); Chloride 98 mmol/L (98-107); Estimated CRCL calculation 96 ml/min; Estimated Glomerular Filt Rate > 60; Glucose 157 mg/dL (75-110); Potassium 4.8 mmol/L (3.4-5.0); Sodium 131 mmol/L (137-145)
[2020-04-25] MEDS: APIXABAN 2.5 MG TABLET PO ×2 (08:25→20:53)
[2020-04-25] MEDS: ESCITALOPRAM OXALATE 5 MG TABLET PO (08:26)
[2020-04-25] MEDS: FLUTICASONE PROPIONATE 0.05% NA SPR 16 GM BTL (*BKC) 1 SPRAY NASAL ×2 (08:26→17:26)
[2020-04-25] MEDS: FAMOTIDINE 20 MG TABLET PO ×2 (08:26→20:53)
[2020-04-25] MEDS: ERGOCALCIFEROL 50,000 UNIT CAPSULE 50000 UNITS PO (08:34)
[2020-04-25] MEDS: diazePAM (*CRX) 2 MG TABLET PO ×2 (08:40→20:53)
--- NOTE | 2020-04-25 11:45 | PM.PNORT ---
Progress Note: A&P Additional Plan Patient is now postop day 1 after open reduction internal fixation of displaced 4 part intertrochanteric hip fracture. He is up in the chair he is alert and oriented. He is comfortable and felt the caput little bit of weight on it comfortably but he does have sharp stabbing pain when he uses the muscles the control the left hip and I explained him that that is because he has displacement of the lesser and greater trochanters and he must avoid using muscles that attached to those fragments for the next 6 weeks until they start to consolidate. 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 He states that he was not wearing the AFO in the house when he fell sustaining this hip fracture and he agrees that he has learned that he must wear the AFO at all times from this point forward because his his risk of falling is too great if he is not wearing the AFO and is trying to walk, especially without a gait aid. He is hoping to be excepted to the of the [facility] for therapy. Her his labs are stable. He has a mild acute blood loss anemia. Mild hyponatremia sodium 131. His antibiotics vancomycin and Levaquin are completed. He is on Eliquis for DVT prophylaxis which she will remain on for 6 weeks. I have advised him to ask the nurses for help whenever it is necessary firm to move his left leg to rule in bed or transfer. Subjective Subjective Date/Time Seen: 04/25/20 11:45 Objective Data Vital Signs Vital Signs: Vital Signs - 24 hr 04/24/20 12:00 04/24/20 12:51 04/24/20 13:09 Temperature 37.3 C 37.0 C Pulse Rate 78 84 88 Respiratory Rate 17 19 Blood Pressure 155/84 H 141/96 H 162/94 H Pulse Oximetry 98 98 95 04/24/20 13:39 04/24/20 14:39 04/24/20 18:00 Temperature 37.4 C 37.0 C 37.4 C Pulse Rate 85 82 100 Respiratory Rate 19 19 20 Blood Pressure 149/96 H 162/78 H 137/77 Pulse Oximetry 96 97 94 04/24/20 20:24 04/24/20 20:54 04/25/20 02:00 Temperature 37.4 C 36.7 C Pulse Rate 89 83 78 Respiratory Rate 16 18 16 Blood Pressure 135/75 118/70 Pulse Oximetry 92 92 04/25/20 05:27 04/25/20 10:00 04/25/20 10:26 Temperature 36.9 C 36.3 C L Pulse Rate 81 85 Respiratory Rate 18 16 Blood Pressure 110/66 132/70 Pulse Oximetry 91 95 94 Intake/Output Intake/Output: Intake & Output 04/22/20 04/23/20 04/24/20 04/25/20 23:59 23:59 23:59 23:59 Intake Total 360 3430 2080 Output Total 2024 1500 Balance 360 1405 580 Meds/Results Medications: Active Medications Generic Name Dose Route Start Last Admin Trade Name Freq PRN Reason Stop Dose Admin Acetaminophen 1,000 mg 04/24/20 18:00 04/25/20 05:41 Tylenol Tablet PO 1,000 mg Q6HR CEFERINO Administration Albuterol 1 puff 04/23/20 16:22 Proventil Hfa INHALATION Q6H PRN shortness of breath or wheezing Apixaban 2.5 mg 04/25/20 09:00 04/25/20 08:25 Eliquis PO 06/06/20 09:01 2.5 mg Q12HR CEFERINO Administration Aspirin 81 mg 04/24/20 21:00 04/24/20 21:11 Aspirin Chewable PO 81 mg HS CEFERINO Administration Budesonide/Formoterol Fumarate 2 puff 04/23/20 20:00 04/25/20 09:55 Symbicort 160-4.5 Mcg (*Sp) Inhaler INHALATION 2 puff Q12HRT CEFERINO Administration Diazepam 5 mg 04/23/20 16:22 04/24/20 00:47 Valium Po PO 5 mg BID PRN Administration Anxiety Diazepam 2 mg 04/23/20 21:00 04/25/20 08:40 Valium Po PO 2 mg Q12HR CEFERINO Administration Ergocalciferol 50,000 unit 04/25/20 09:00 04/25/20 08:34 Drisdol PO 06/13/20 09:01 50,000 unit WEEKLY CEFERINO Administration Escitalopram Oxalate 5 mg 04/24/20 09:00 04/25/20 08:26 Lexapro PO 5 mg DAILY CEFERINO Administration Famotidine 20 mg 04/24/20 21:00 04/25/20 08:26 Pepcid PO 20 mg Q12HR CEFERINO Administration Fentanyl Citrate 25 mcg 04/24/20 08:46 04/24/20 11:30 Sublimaze IV PUSH 25
--- NOTE | 2020-04-25 13:14 | PM.IMPN ---
Progress Note: A&P Assessment and Plan (1) Closed fracture of left hip: Code(s): S72.002A - Fracture of unspecified part of neck of left femur, initial encounter for closed fracture Status: Acute Assessment and Plan: Patient is s/p OANH PT/OT Pain control Follow Ortho recs Daily labs (2) HTN (hypertension): Code(s): I10 - Essential (primary) hypertension Status: Acute Assessment and Plan: Continue to monitor Continue home meds Well controlled (3) Left leg weakness: Code(s): R29.898 - Other symptoms and signs involving the musculoskeletal system Status: Acute Assessment and Plan: Chronic As a result of the multiple surgeries Wears brace (4) Obstructive sleep apnea: Code(s): G47.33 - Obstructive sleep apnea (adult) (pediatric) Status: Acute Assessment and Plan: Use of CPAP at night time. Subjective Date/time seen: 04/25/20 13:14 Patient seen and examined earlier in the morning, he is s/p LHTA. No issues overnight. States that feels well, pain is well controlled. Review of Systems Review of Systems: Narrative: Patient is now s/p L OANH. Constitutional: Constitutional: Reports as per HPI and Reports no additional constitutional complaints ENT: Reports system reviewed and no additional complaints, except as documented and Reports as per HPI Cardiovascular: Cardiovascular: Reports as per HPI and Reports no additional cardiovascular complaints Respiratory: Respiratory: Reports as per HPI and Reports no additional respiratory complaints Gastrointestinal: Gastrointestinal: Reports as per HPI and Reports no additional gastrointestinal complaints Musculoskeletal: Musculoskeletal: Reports no additional musculoskeletal complaints and Reports as per HPI Neurologic: Reports system reviewed and no additional complaints, except as documented and Reports as per HPI Exam Narrative: Exam Narrative: Well nourished well developed, well appearing.NAD Const: General: cooperative, healthy appearing, comfortable and no acute distress Nutritional Appearance: well nourished HENMT: Head: normocephalic Ears: hearing grossly normal bilaterally General nose exam: Normal external nose present Face and sinus: normal facial exam Eyes: General: appearance normal, both eyes and all related structures Pupils: Equal, round and reactive pupils present EOM: EOMs intact bilaterally Neck: Neck: full ROM, no lymphadenopathy, supple and no JVD Resp: Effort & Inspection: normal respiratory effort Auscultation: clear to auscultation bilaterally Cardio: Jugular venous distension: no JVD Rate: regular rate Rhythm: regular rhythm Heart sounds: S1 normal heart sound present and S2 normal heart sound present GI: Inspection: normal to inspection GI Palp: Yes Soft to palpation Skin: General skin exam: normal color Trauma: no lacerations or abrasions Wounds: no wounds Other: L hip surgical wound. Neuro: General: patient oriented x3 Cranial nerves: Yes CN's II-XII intact bilaterally and Yes Equal, round and reactive pupils present Motor exam (neuro): Other motor observations present (L foot drop) Extrem: General: normal to inspection Other: No edema. Objective Data Vital Signs Vital Signs: Vital Signs - 24 hr 04/24/20 13:39 04/24/20 14:39 04/24/20 18:00 Temperature 99.4 F 98.6 F 99.3 F Pulse Rate 85 82 100 Respiratory Rate 19 19 20 Blood Pressure 149/96 H 162/78 H 137/77 Pulse Oximetry 96 97 94 04/24/20 20:24 04/24/20 20:54 04/25/20 02:00 Temperature 99.3 F 98.1 F Pulse Rate 89 83 78 Respiratory Rate 16 18 16 Blood Pressure 135/75 118/70 Pulse Oximetry 92 92 04/25/20 05:27 04/25/20 10:00 04/25/20 10:26 Temperature 98.4 F 97.3 F L Pulse Rate 81 85 Respiratory Rate 18 16 Blood Pressure 110/66 132/70 Pulse Oximetry 91 95 94 Intake/Output Intake/Output: Intake & Output 04/22/20 04/23/20 04/24/20 04/25/20 23:59 23:59 23:59 23:
--- NOTE | 2020-04-25 15:27 | P.PNAN_ITS ---
Anes - Prog Note Post-Op Date/Time: 04/25/20 15:27 Cardiovascular status: normal Respiratory status: normal Airway patency: baseline Mental status: baseline Post-Op hydration status: normal Vital Signs: Last Vital Signs Temp 37.0 C 04/25/20 14:00 Pulse 77 04/25/20 14:00 Resp 19 04/25/20 14:00 BP 120/59 L 04/25/20 14:00 Pulse Ox 92 04/25/20 14:00 Pain Score (VAS): 08/15 I/O: Intake & Output 04/24/20 04/25/20 04/25/20 23:59 07:59 15:59 Intake Total 8455 926 8044 Output Total 1675 1500 Balance 115 -900 1720 Laboratory Tests 04/25/20 05:01 04/25/20 05:01 04/25/20 04/25/20 05:01 05:01 WBC 10.6 H RBC 3.66 L Hgb 11.2 L Hct 32.7 L MCV 89.3 MCH 30.6 MCHC 34.3 RDW 12.9 Plt Count 189 MPV 9.6 Immature Gran % (Auto) 0.4 Neut % (Auto) 86.0 H Lymph % (Auto) 5.1 L [place] % (Auto) 8.4 Eos % (Auto) 0.0 Baso % (Auto) 0.1 L Lymph # (Auto) 0.54 L [place] # (Auto) 0.9 H Eos # (Auto) 0.0 Baso # (Auto) 0.0 Abs Immat Gran (auto) 0.04 H Absolute Neuts (auto) 9.2 H Absolute Nucleated RBC 0.0 Nucleated RBC % 0.0 Sodium 131 L Potassium 4.8 Chloride 98 Carbon Dioxide 26 Anion Gap 7 L BUN 17 D Creatinine 0.80 Estim Creat Clear Calc 96 Estimated GFR > 60 Glucose 157 H Calcium 9.2 Post-procedural complaints: none Patient Feedback: Patient satisfied with anesthetic care.
[2020-04-25] MEDS: ASPIRIN 81 MG CHEWABLE TABLET PO (20:53)
[2020-04-25] MEDS: SIMVASTATIN 10 MG TABLET PO (21:01)
[2020-04-26] MEDS: ACETAMINOPHEN 500 MG TABLET 1000 MG PO ×4 (01:22→17:11)
[2020-04-26] MEDS: oxyCODONE HCL (*CRX) 5 MG TAB IR PO ×5 (01:22→17:10)
[2020-04-26 02:00] VITALS: BP 136/81; PULSE 70; RESP 20; TEMP 36.8; O2SAT 98
[2020-04-26 06:00] VITALS: BP 137/72; PULSE 67; RESP 18; TEMP 36.8; O2SAT 96
[2020-04-26 08:27] VITALS: O2SAT 94
[2020-04-26] MEDS: APIXABAN 2.5 MG TABLET PO (08:45)
[2020-04-26] MEDS: diazePAM (*CRX) 2 MG TABLET PO (08:45)
[2020-04-26] MEDS: FLUTICASONE PROPIONATE 0.05% NA SPR 16 GM BTL (*BKC) 1 SPRAY NASAL ×2 (08:46→17:11)
[2020-04-26] MEDS: FAMOTIDINE 20 MG TABLET PO (08:46)
[2020-04-26] MEDS: ESCITALOPRAM OXALATE 5 MG TABLET PO (08:46)
[2020-04-26] MEDS: SENNA/DOCUSATE SODIUM TABLET 2 TAB PO ×2 (08:46→17:11)
[2020-04-26] MEDS: polyethylene glycoL 3350 17 GM POWD.PACK PO (08:46)
[2020-04-26 10:00] VITALS: BP 124/76; PULSE 85; RESP 18; TEMP 36.1; O2SAT 96
[2020-04-26 10:51] LABS: Hematocrit 33.3 % (42.0-52.0); Hemoglobin 11.1 g/dL (14.0-18.0); Mean Corpuscular HGB Conc 33.3 g/dl (32-36); Mean Corpuscular Hemoglobin 30.6 pg (26-34); Mean Corpuscular Volume 91.7 fl (80-100); Mean Platelet Volume 9.4 fl (7.4-10.4); Platelet Count Result 207 k/mm3 (150-375); Red Blood Count 3.63 M/mm3 (4.6-6.20); Red Cell Distribution Width 13.6 % (11.5-14.5); White Blood Count 9.2 K/mm3 (4.5-10.0)
[2020-04-26 11:00] LABS: Anion Gap 7 mmol/L (8-16); Blood Urea Nitrogen 21 mg/dL (9-20); Carbon Dioxide 27 mmol/L (22-30); Chloride 98 mmol/L (98-107); Estimated CRCL calculation 86 ml/min; Estimated Glomerular Filt Rate > 60; Glucose 104 mg/dL (75-110); Potassium 4.2 mmol/L (3.4-5.0); Sodium 132 mmol/L (137-145)
[2020-04-26] MEDS: LORATADINE 10 MG TABLET PO (11:24)
[2020-04-26] MEDS: TIZANIDINE HCL 4 MG TABLET PO (11:28)
--- NOTE | 2020-04-26 11:54 | PM.IMPN ---
Subjective Date/time seen: 04/26/20 11:54 Objective Data Vital Signs Vital Signs: Vital Signs - 24 hr 04/25/20 14:00 04/25/20 18:00 04/25/20 19:57 Temperature 98.6 F 99.3 F Pulse Rate 77 81 Respiratory Rate 19 17 Blood Pressure 120/59 L 134/71 Pulse Oximetry 92 93 92 04/25/20 22:00 04/26/20 02:00 04/26/20 06:00 Temperature 97.6 F 98.2 F 98.2 F Pulse Rate 80 70 67 Respiratory Rate 18 20 18 Blood Pressure 134/71 136/81 137/72 Pulse Oximetry 96 98 96 04/26/20 08:27 Temperature Pulse Rate Respiratory Rate Blood Pressure Pulse Oximetry 94 Intake/Output Intake/Output: Intake & Output 04/23/20 04/24/20 04/25/20 04/26/20 23:59 23:59 23:59 23:59 Intake Total 360 3430 3085 1040 Output Total 2025 2175 1100 Balance 360 1405 910 -60 Meds/Results Medications: Active Medications Generic Name Dose Route Start Last Admin Trade Name Freq PRN Reason Stop Dose Admin Acetaminophen 1,000 mg 04/24/20 18:00 04/26/20 11:25 Tylenol Tablet PO 1,000 mg Q6HR CEFERINO Administration Albuterol 1 puff 04/23/20 16:22 Proventil Hfa INHALATION Q6H PRN shortness of breath or wheezing Apixaban 2.5 mg 04/25/20 09:00 04/26/20 08:45 Eliquis PO 06/06/20 09:01 2.5 mg Q12HR CEFERINO Administration Aspirin 81 mg 04/24/20 21:00 04/25/20 20:53 Aspirin Chewable PO 81 mg HS CEFERINO Administration Budesonide/Formoterol Fumarate 2 puff 04/23/20 20:00 04/26/20 08:26 Symbicort 160-4.5 Mcg (*Sp) Inhaler INHALATION 2 puff Q12HRT CEFERINO Administration Diazepam 5 mg 04/23/20 16:22 04/24/20 00:47 Valium Po PO 5 mg BID PRN Administration Anxiety Diazepam 2 mg 04/23/20 21:00 04/26/20 08:45 Valium Po PO 2 mg Q12HR CEFERINO Administration Ergocalciferol 50,000 unit 04/25/20 09:00 04/25/20 08:34 Drisdol PO 06/13/20 09:01 50,000 unit WEEKLY [facility] Administration Escitalopram Oxalate 5 mg 04/24/20 09:00 04/26/20 08:46 Lexapro PO 5 mg DAILY [facility] Administration Famotidine 20 mg 04/24/20 21:00 04/26/20 08:46 Pepcid PO 20 mg Q12HR [facility] Administration Fentanyl Citrate 25 mcg 04/24/20 08:46 04/24/20 11:30 Sublimaze IV PUSH 25 mcg Q2M PRN Administration Pain Fluticasone Propionate 1 spray 04/24/20 17:00 04/26/20 08:46 Flonase 0.05% Nasal [place] NASAL 1 spray BID [facility] Administration Lisinopril 10 mg 04/26/20 11:40 Prinivil PO DAILY [facility] Loratadine 10 mg 04/26/20 09:00 04/26/20 11:24 Claritin PO 10 mg QAM [facility] Administration Magnesium Hydroxide 30 ml 04/24/20 12:54 Milk Of Magnesia PO BID PRN Constipation Morphine Sulfate 2 mg 04/24/20 12:54 Morphine Sulfate Inj (*Crx) IV PUSH Q3H PRN Pain Rated 7-10 Non-Formulary Medication 10 mg 04/25/20 09:00 Dextroamphetamine-Amphetamine [Adderall Xr] PO 05/25/20 09:01 DAILY [facility] Non-Formulary Medication 1 each 04/26/20 09:00 Nonformulary Drug PO 05/26/20 09:01 DAILY [facility] Ondansetron HCl 4 mg 04/24/20 08:46 Zofran Inj IV PUSH ONCE PRN Nausea Ondansetron HCl 4 mg 04/24/20 12:54 Zofran Inj IV PUSH Q4H PRN Nausea And Vomiting Oxycodone HCl 5 mg 04/24/20 17:00 04/26/20 08:46 Roxicodone Ir Tablet PO 5 mg Q4HR [facility] Administration Oxycodone HCl 5 mg 04/24/20 12:54 04/24/20 14:18 Roxicodone Ir Tablet PO 5 mg Q4H PRN Administration Pain Rated 4-6 Polyethylene Glycol 17 gm 04/25/20 09:00 04/26/20 08:46 Miralax PO 17 gm QAM CEFERINO Administration Senna/Docusate Sodium 2 tab 04/24/20 17:00 04/26/20 08:46 Senokot S Tablet PO 2 tab BID CEFERINO Administration Simvastatin 10 mg 04/23/20 21:00 04/25/20 21:01 Zocor PO 10 mg HS CEFERINO Administration Tizanidine HCl 4 mg 04/23/20 18:27 04/26/20 11:28 Zanaflex PO 4 mg BID PRN Administration Muscle Spasm Radiology Results: ITS Impressions Hip/Pelvis X-Ray
--- NOTE | 2020-04-26 12:41 | PC.NURSE ---
Patient urinating without difficulty.
[2020-04-26] MEDS: lisinopriL 10 MG TABLET PO (12:43)
--- NOTE | 2020-04-26 12:48 | PM.PNORT ---
Progress Note: A&P Additional Plan Pt is POD 2 left IT fx ORIF. avss labs-noted, rojelio has been working with PT. awaiting at this point whether [facility]. Subjective Subjective Date/Time Seen: 04/26/20 12:48 Objective Data Vital Signs Vital Signs: Vital Signs - 24 hr 04/25/20 14:00 04/25/20 18:00 04/25/20 19:57 Temperature 37.0 C 37.4 C Pulse Rate 77 81 Respiratory Rate 19 17 Blood Pressure 120/59 L 134/71 Pulse Oximetry 92 93 92 04/25/20 22:00 04/26/20 02:00 04/26/20 06:00 Temperature 36.4 C 36.8 C 36.8 C Pulse Rate 80 70 67 Respiratory Rate 18 20 18 Blood Pressure 134/71 136/81 137/72 Pulse Oximetry 96 98 96 04/26/20 08:27 04/26/20 10:00 Temperature 36.1 C L Pulse Rate 85 Respiratory Rate 18 Blood Pressure 124/76 Pulse Oximetry 94 96 Intake/Output Intake/Output: Intake & Output 04/23/20 04/24/20 04/25/20 04/26/20 23:59 23:59 23:59 23:59 Intake Total 360 3430 3085 1040 Output Total 2025 2175 1275 Balance 360 1405 910 -235 Meds/Results Medications: Active Medications Generic Name Dose Route Start Last Admin Trade Name Freq PRN Reason Stop Dose Admin Acetaminophen 1,000 mg 04/24/20 18:00 04/26/20 11:25 Tylenol Tablet PO 1,000 mg Q6HR CEFERINO Administration Albuterol 1 puff 04/23/20 16:22 Proventil Hfa INHALATION Q6H PRN shortness of breath or wheezing Apixaban 2.5 mg 04/25/20 09:00 04/26/20 08:45 Eliquis PO 06/06/20 09:01 2.5 mg Q12HR CEFERINO Administration Aspirin 81 mg 04/24/20 21:00 04/25/20 20:53 Aspirin Chewable PO 81 mg HS CEFERINO Administration Budesonide/Formoterol Fumarate 2 puff 04/23/20 20:00 04/26/20 08:26 Symbicort 160-4.5 Mcg (*Sp) Inhaler INHALATION 2 puff Q12HRT [facility] Administration Diazepam 5 mg 04/23/20 16:22 04/24/20 00:47 Valium Po PO 5 mg BID PRN Administration Anxiety Diazepam 2 mg 04/23/20 21:00 04/26/20 08:45 Valium Po PO 2 mg Q12HR CEFERINO Administration Ergocalciferol 50,000 unit 04/25/20 09:00 04/25/20 08:34 Drisdol PO 06/13/20 09:01 50,000 unit WEEKLY CEFERINO Administration Escitalopram Oxalate 5 mg 04/24/20 09:00 04/26/20 08:46 Lexapro PO 5 mg DAILY [facility] Administration Famotidine 20 mg 04/24/20 21:00 04/26/20 08:46 Pepcid PO 20 mg Q12HR [facility] Administration Fluticasone Propionate 1 spray 04/24/20 17:00 04/26/20 08:46 Flonase 0.05% Nasal [place] NASAL 1 spray BID [facility] Administration Lisinopril 10 mg 04/26/20 11:40 04/26/20 12:43 Prinivil PO 10 mg DAILY [facility] Administration Loratadine 10 mg 04/26/20 09:00 04/26/20 11:24 Claritin PO 10 mg QAM [facility] Administration Magnesium Hydroxide 30 ml 04/24/20 12:54 Milk Of Magnesia PO BID PRN Constipation Morphine Sulfate 2 mg 04/24/20 12:54 Morphine Sulfate Inj (*Crx) IV PUSH Q3H PRN Pain Rated 7-10 Non-Formulary Medication 10 mg 04/25/20 09:00 Dextroamphetamine-Amphetamine [Adderall Xr] PO 05/25/20 09:01 DAILY [facility] Non-Formulary Medication 1 each 04/26/20 09:00 Nonformulary Drug PO 05/26/20 09:01 DAILY [facility] Ondansetron HCl 4 mg 04/24/20 08:46 Zofran Inj IV PUSH ONCE PRN Nausea Ondansetron HCl 4 mg 04/24/20 12:54 Zofran Inj IV PUSH Q4H PRN Nausea And Vomiting Oxycodone HCl 5 mg 04/24/20 17:00 04/26/20 12:22 Roxicodone Ir Tablet PO 5 mg Q4HR [facility] Administration Oxycodone HCl 5 mg 04/24/20 12:54 04/24/20 14:18 Roxicodone Ir Tablet PO 5 mg Q4H PRN Administration Pain Rated 4-6 Polyethylene Glycol 17 gm 04/25/20 09:00 04/26/20 08:46 Miralax PO 17 gm QAM [facility] Administration Senna/Docusate Sodium 2 tab 04/24/20 17:00 04/26/20 08:46 Senokot S Tablet PO 2 tab BID [facility] Administration Simvastatin 10 mg 04/23/20 21:00 04/25/20 21:01 Zocor PO 10 mg HS [facility] Administration Tizanidine HCl 4 mg 04/23/20 18:27
[2020-04-26 14:00] VITALS: BP 127/56; PULSE 72; RESP 20; TEMP 36.1; O2SAT 97
--- NOTE | 2020-04-26 15:16 | PM.DS ---
DS: Admitting Diagnosis Admitting Diagnosis Admitting Diagnosis: Closed left hip fracture, underwent HÉCTOR please see operative report by ortho. No issues Patient participated on PT/OT DS: Discharge Diagnosis Discharge Diagnosis (1) Closed fracture of left hip: Code(s): S72.002A - Fracture of unspecified part of neck of left femur, initial encounter for closed fracture Status: Acute Assessment and Plan: S/p OANH Stable (2) HTN (hypertension): Code(s): I10 - Essential (primary) hypertension Status: Acute Assessment and Plan: Stable Continue Lisinopril (3) Left leg weakness: Code(s): R29.898 - Other symptoms and signs involving the musculoskeletal system Status: Acute Assessment and Plan: Continue to myriam brace, chronic issue for the patient as a result of multiple surgeries. (4) Obstructive sleep apnea: Code(s): G47.33 - Obstructive sleep apnea (adult) (pediatric) Status: Acute Assessment and Plan: Use CPAP at night time. DS: Summary Time Spent with Patient Time attestation: Total time spent providing and/or coordinating discharge services:45 + minutes. Exam Narrative: Exam Narrative: Sitting in no acuet distress. Const: General: cooperative, healthy appearing, comfortable and no acute distress Nutritional Appearance: average body habitus HENMT: Head: normocephalic Ears: hearing grossly normal bilaterally General nose exam: Normal external nose present Face and sinus: normal facial exam Mouth: Yes Normal oral and palatal mucosa present Eyes: General: appearance normal, both eyes and all related structures Pupils: Equal, round and reactive pupils present EOM: EOMs intact bilaterally Neck: Neck: full ROM, no lymphadenopathy and no JVD Resp: Auscultation: clear to auscultation bilaterally Cardio: Jugular venous distension: no JVD Rate: regular rate Rhythm: regular rhythm Heart sounds: S1 normal heart sound present and S2 normal heart sound present GI: Inspection: normal to inspection GI Palp: Yes Soft to palpation and Yes No hepatosplenomegaly present Auscultation: normal bowel sounds Skin: General skin exam: normal color Lesions: no lesions Rashes: no rashes Trauma: no lacerations or abrasions Neuro: General: patient oriented x3 and other (L foot drop) Cranial nerves: Yes CN's II-XII intact bilaterally and Yes Equal, round and reactive pupils present DS: Data Data Completed and Pending Pending studies at discharge: Pending at discharge 04/24/20 10:28 Surgical [PTH] Routine Labs on day of discharge: Labs from last 24 hours 04/26/20 04/26/20 10:41 10:41 WBC 9.2 RBC 3.63 L Hgb 11.1 L Hct 33.3 L MCV 91.7 MCH 30.6 MCHC 33.3 RDW 13.6 Plt Count 207 MPV 9.4 Sodium 132 L Potassium 4.2 Chloride 98 Carbon Dioxide 27 Anion Gap 7 L BUN 21 H Creatinine 0.90 Estim Creat Clear Calc 86 Estimated GFR > 60 Glucose 104 Calcium 9.0 Discharge Plan Discharge Attending physician on discharge: Umair Parra V. Consulting providers: ; Nguyễn Cee ; Lorenzo Self Discharging Clinician: Umair Parra V. Patient Disposition: Inpatient Rehab Facility Activity: other - see discharge instructions Diet: heart healthy, low cholesterol, low fat and high fiber Discharge Instructions: 25% weight bearing to left leg Follow Dr. Cee's instructions for PT/OT Maintain dressing to left hip. When changing dressing, reapply telfa and tegaderm to incisions. Patient Instructions: Apixaban (By mouth), Hip Fracture (GEN) Stand Alone Forms: General Discharge Information Discharge Medications: New polyethylene glycol 3350 [Miralax] 17 gram Powder In Packet 17 g PO QAM Qty: 0 RF: 0 sennosides-docusate sodium [Senokot-S] 8.6-50 mg Tablet 2 tab-cap PO BID 99 Days Qty: 396 RF: 0 acetaminophen 500 mg Tablet 1,000 mg PO Q6HR 5 Days Qty: 40
== END 2020-04-26 17:40 | DRG 481 ==
LOC: ANHED 15:29 → ANH2MED 16:24
PROVIDERS: Emergency Medicine Emergency Medical Services; Orthopaedic Surgery; Physician Assistant Surgical; Admitting Provider Family Medicine; Emergency Provider Emergency Medicine; Visit Provider Internal Medicine
PROC: 0QS704Z Reposition Left Upper Femur with Internal Fixation Device, Open Approach (ICD-10-PCS; CPT 27245; principal; 2020-04-24 09:30)
DX: S72.142A Displaced intertrochanteric fracture of left femur, initial encounter for closed fracture (principal); D62 Acute posthemorrhagic anemia; E87.1 Hypo-osmolality and hyponatremia; M21.372 Foot drop, left foot; W18.09XA Striking against other object with subsequent fall, initial encounter; J45.909 Unspecified asthma, uncomplicated; G47.33 Obstructive sleep apnea (adult) (pediatric); E78.5 Hyperlipidemia, unspecified; Z85.46 Personal history of malignant neoplasm of prostate; I10 Essential (primary) hypertension; R29.898 Other symptoms and signs involving the musculoskeletal system; Z96.653 Presence of artificial knee joint, bilateral; E66.9 Obesity, unspecified; Z68.34 Body mass index [BMI] 34.0-34.9, adult
CPT/HCPCS: 36415; 71045; 73502; 80048; 80053; 82306; 85025; 85027; 85610; 85730; 86850; 86900; 86901; 88305; 88309; 88311; 93005; 94640; 96361; 96365; 96375; 96376; 97110; 97116; 97162; 97166; 97530; 97535; 99285; A9270; C1713; G0378; J0330; J1100; J1170; J1956; J2001; J2250; J2270; J2405; J2704; J2710; J3010; J3370; J7120; J7121

== ENCOUNTER 2020-04-26 17:30 | IRF | payer MEDICARE, SELFPAY ==
--- NOTE | ~2020-04-26 | XR_ITS ---
XR hip LT 2V w AP pelvis DATE: 05/10/2020 13:31 INDICATION: Postoperative examination; left hip fracture TECHNIQUE: AP pelvis. AP and lateral views of left hip COMPARISON: 04/23/2020 pelvis and left hip FINDINGS: There is interval placement of interlocking compression screw and intramedullary dwight at the proximal femur for internal fixation of the previously reported comminuted intertrochanteric fractur e, with correction of varus deformity and no severe displacement of the major proximal and distal fra cture fragments. Prominent levoscoliosis and severe degenerative disc disease of the lumbar spine. IMPRESSION: Status post ORIF left intertrochanteric comminuted proximal femoral fracture Reviewed, dictated and finalized at location A.
[2020-04-26 17:30] VITALS: BP 107/70; PULSE 78; RESP 20; TEMP 36.8; O2SAT 95; BMI 35.9
--- NOTE | 2020-04-26 18:16 | ADMGEN ---
This patient, Timmy Morocho, was admitted to [facility] Room 226-02. Patient/family oriented to hospital policies and general routines including ID bracelet, bed and alarms, visiting hours, pain management, procedures, bathroom and other care routines, personal items, smoking policy, room service/diet, and visiting hours. Valuables list has been completed. Information on how to activate the Rapid Response Team has been discussed. Patient/Family are encouraged to report perceived risks to care and to ask questions if they do not understand what they are told or what they should do. patient was transported via bed from [address] [place] [address], He is alert and oriented x4, has no c/o pain or discomfort
[2020-04-26 19:51] VITALS: BMI 35.9
[2020-04-26] MEDS: FAMOTIDINE 20 MG TABLET PO (20:58)
[2020-04-26] MEDS: APIXABAN 2.5 MG TABLET PO (20:58)
[2020-04-26] MEDS: ASPIRIN 81 MG CHEWABLE TABLET PO (20:58)
[2020-04-26] MEDS: SIMVASTATIN 10 MG TABLET PO (20:58)
[2020-04-26] MEDS: diazePAM (*CRX) 2 MG TABLET PO (20:58)
--- NOTE | 2020-04-26 21:34 | PHAR ---
(AMPHETAMINE SALTS ER 10MG CAPSULES) HOME MED SEEN IN PHARMACYAND RETURNED TO [facility]
[2020-04-26 22:00] VITALS: BP 140/75; PULSE 76; RESP 18; TEMP 36.7; O2SAT 96
[2020-04-27] MEDS: ACETAMINOPHEN 500 MG TABLET 1000 MG PO ×5 (00:47→23:45)
[2020-04-27] MEDS: oxyCODONE HCL (*CRX) 5 MG TAB IR PO ×4 (00:48→23:45)
[2020-04-27 04:47] LABS: Basophils Absolute Auto 0.1 K/mm3 (0.0-0.1); Basophils Percent Auto 0.8 % (0.2-1.2); Eosinophils Absolute Auto 0.3 K/mm3 (0-0.3); Eosinophils Percent Auto 4.3 % (0-4.4); Hematocrit 29.4 % (42.0-52.0); Hemoglobin 10.1 g/dL (14.0-18.0); Immature Granulocyte Absolute 0.08 K/mm3 (0.00-0.031); Lymphocytes Absolute Auto 1.21 K/mm3 (0.9-3.2); Lymphocytes Percent Auto 15.8 % (18.3-44.2); Mean Corpuscular HGB Conc 34.4 g/dl (32-36); Mean Corpuscular Hemoglobin 31.1 pg (26-34); Mean Corpuscular Volume 90.5 fl (80-100); Mean Platelet Volume 9.5 fl (7.4-10.4); Monocytes Absolute Auto 0.8 K/mm3 (0.1-0.6); Monocytes Percent Auto 10.5 % (2.6-8.5); Neutrophils Absolute Auto 5.2 K/mm3 (1.3-6.7); Neutrophils Percent Auto 67.6 % (45.5-73.1); Platelet Count Result 189 k/mm3 (150-375); Red Blood Count 3.25 M/mm3 (4.6-6.20); Red Cell Distribution Width 13.5 % (11.5-14.5); White Blood Count 7.7 K/mm3 (4.5-10.0)
[2020-04-27 05:05] LABS: Anion Gap 6 mmol/L (8-16); Blood Urea Nitrogen 21 mg/dL (9-20); Calcium 8.7 mg/dL (8.4-10.2); Carbon Dioxide 28 mmol/L (22-30); Chloride 99 mmol/L (98-107); Estimated CRCL calculation 98 ml/min; Estimated Glomerular Filt Rate > 60; Glucose 99 mg/dL (75-110); Potassium 4.2 mmol/L (3.4-5.0); Sodium 133 mmol/L (137-145)
[2020-04-27 06:00] VITALS: BP 136/71; PULSE 67; RESP 18; TEMP 36.8; O2SAT 98
[2020-04-27 09:00] VITALS: O2SAT 96
[2020-04-27] MEDS: APIXABAN 2.5 MG TABLET PO ×2 (10:59→20:40)
[2020-04-27] MEDS: SENNA/DOCUSATE SODIUM TABLET 2 TAB PO ×2 (11:00→17:28)
[2020-04-27] MEDS: ESCITALOPRAM OXALATE 5 MG TABLET PO (11:00)
[2020-04-27] MEDS: FAMOTIDINE 20 MG TABLET PO ×2 (11:00→20:39)
[2020-04-27] MEDS: lisinopriL 10 MG TABLET PO (11:01)
[2020-04-27] MEDS: FLUTICASONE PROPIONATE 0.05% NA SPR 16 GM BTL (*BKC) 1 SPRAY NASAL (11:01)
[2020-04-27] MEDS: LORATADINE 10 MG TABLET PO (11:01)
[2020-04-27] MEDS: polyethylene glycoL 3350 17 GM POWD.PACK PO (11:01)
[2020-04-27] MEDS: diazePAM (*CRX) 2 MG TABLET PO ×2 (11:03→20:42)
[2020-04-27 12:20] VITALS: BMI 35.9
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
[2020-04-27 14:00] VITALS: BP 134/81; PULSE 104; RESP 20; TEMP 37.3; O2SAT 95
[2020-04-27 20:15] VITALS: PULSE 92; RESP 9; O2SAT 92
[2020-04-27] MEDS: ASPIRIN 81 MG CHEWABLE TABLET PO (20:39)
[2020-04-27] MEDS: SIMVASTATIN 10 MG TABLET PO (20:39)
[2020-04-27] MEDS: TIZANIDINE HCL 4 MG TABLET PO (20:40)
[2020-04-27 22:00] VITALS: BP 112/64; PULSE 86; RESP 18; TEMP 36.4; O2SAT 95
[2020-04-28 05:56] VITALS: BP 120/76; PULSE 82; RESP 20; TEMP 36.6; O2SAT 98
[2020-04-28] MEDS: ACETAMINOPHEN 500 MG TABLET 1000 MG PO ×3 (06:09→17:48)
[2020-04-28] MEDS: oxyCODONE HCL (*CRX) 5 MG TAB IR PO ×4 (06:09→20:53)
[2020-04-28 08:23] VITALS: O2SAT 93
[2020-04-28] MEDS: SENNA/DOCUSATE SODIUM TABLET 2 TAB PO ×2 (08:36→17:49)
[2020-04-28] MEDS: APIXABAN 2.5 MG TABLET PO ×2 (08:36→20:54)
[2020-04-28] MEDS: FAMOTIDINE 20 MG TABLET PO ×2 (08:36→20:54)
[2020-04-28] MEDS: ESCITALOPRAM OXALATE 5 MG TABLET PO (08:36)
[2020-04-28] MEDS: diazePAM (*CRX) 2 MG TABLET PO ×2 (08:36→20:53)
[2020-04-28] MEDS: FLUTICASONE PROPIONATE 0.05% NA SPR 16 GM BTL (*BKC) 2 SPRAY NASAL (08:37)
[2020-04-28] MEDS: LORATADINE 10 MG TABLET PO (08:37)
[2020-04-28] MEDS: polyethylene glycoL 3350 17 GM POWD.PACK PO (08:37)
[2020-04-28] MEDS: lisinopriL 10 MG TABLET PO (08:37)
--- NOTE | 2020-04-28 10:34 | RPD ---
INDIVIDUALIZED PLAN OF CARE FOR Timmy Morocho Brief Synthesis of Pre-Admission Screen, Post-Admission Evaluation and Therapy Evaluations: The patient presents to rehab with a comminuted displaced left femoral intertrochanteric fracture with varus angulation. Comorbidities include ADHD, asthma, depression, constipation, HTN, HLD, left sciatica, left leg weakness, left sciatic nerve pain, obstructive sleep apnea, prostate cancer, shortness of breath, sleep apnea with CPAP, and left foot drop. The complexity of the patient's medical management, nursing, and therapy needs require an inpatient rehab hospital stay with a physician-led interdisciplinary team approach. The patient?s needs will be best met in an intensive program vs. at a lower level of care. The patient requires physician services for medical oversight, management of postop complications in setting of present comorbidities, and pain management. The patient requires nursing services for DVT prophylactics, infection protection, medication management and education, pressure relief, and wound care. Deficits include:ADLs, Balance, Endurance, Family Training/Education, Mobility, Pain Management, ROM, Safety, Strength, and Transfers. 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 Treatments may include: Therapeutic Exercise, Gait Training, Neuromuscular Re-education, Transfer Training, Community Reintegration, Bed Mobility, Patient/Family Education, Wheelchair Mobility Group Therapy/Concurrent Therapy Rationales: -Improve attention span during functional activities in a distracted environment. -Enhance problem solving and/or adequate judgment skills during functional activities in a distracted environment. -Promote increased safety awareness in a distracted environment to reduce fall risk with functional tasks, transfers, and ambulation to allow a more safe, self-sufficient return to the home environment. -Improve dynamic balance skills to promote safety and independence with functional activities in a distracted environment for maximum gain. Occupational Therapy: 5 days per week for 90 minutes. Treatments may include: Therapeutic Exercise, Therapeutic Activity, Cognitive Training, Self-Care Transfer Training, Community Reintegration, Home Management, Patient/Family Education, Wheelchair Mobility Training, Energy Conservation Training Group Therapy/Concurrent Therapy Rationales: -Allow therapist to observe and teach generalization and carry-over of skills learned in individual therapy. -Enhance problem solving and sequencing skills during therapeutic activities in a distracted environment. -Promote increased safety awareness in a realistic setting to reduce fall risk with functional tasks due to visual and verbal distractions. -Increase functional level with ADLs, ADL transfers and use of adaptive equipment through therapeutic activities with others while promoting safety to allow a more safe, self-sufficient return home. Medical Prognosis: Good Anticipated Length of Stay: 12 days Rehab Goals: Eating Goal: 06-Independent Oral Hygiene Goal: 06-Independent Toileting Hygiene Goal: 06-Independent Shower/Bathe Self Goal: 04-Supervision or Touching Assistance Upper Body Dressing Goal: 06-Independent Lower Body Dressing Goal: 03-Partial/Moderate Assistance Putting On/Taking Off Footwear Goal: 03-Partial/Moderate Assistance Rolling Left and Right Goal: 06-Independent Sit to Lying Goal: 06-Independent Lying to Sitting on Side of Bed Goal: 06-Independent Sit to Stand Goal: 06-Independent Chair/[id number] Transfer Goal: 06-Independent Toilet Transfer Goal: 06-Independent Car Transfer Goal: 06-Independent Walk 10' Goal: 06-Independent Walk 50' with Two Turns Goal: 06-Independent Walk 150' Goal: 09-Not Applicable Walk 10' on Uneven Surface Goal: 03-Partial/Moderate Assistance 1 Step (Curb) Goal: 03-Partial/Moderate Assistanc
--- NOTE | 2020-04-28 11:29 | WPDNEURORHBP ---
Subjective Date/time seen: 04/28/20 11:29 Interval history: this 75-year-old gentleman with a past medical history of having had a left foot drop a most likely related to his problem in the lower back many years ago for which he had had the back fusion performed was primarily admitted to us because of fall and the left hip fracture followed by the surgery by nailing is doing fairly well in the acute rehab since he has a weight restriction of 25% of the left lower extremity he is limited however very cooperative and making progress in the rehab he denies he denies any headache nausea vomiting chest pain shortness of breath fever chills sore throat Review of Systems Review of Systems: All systems reviewed & are unremarkable except as noted in HPI and below Functional Status Ambulation Ability Ability to Ambulate 10 Feet: Contact Guard Ability to Ambulate 50 Feet With 2 Turns: Contact Guard Ambulation Assistive Devices: Walker, Standard Transfers Ability Ability to Transfer In/Out of Chair: Standby Assistance Exam Const: General: comfortable and no acute distress HENMT: General nose exam: Normal nares present Mouth: Yes moist mucous membranes Eyes: General: appearance normal, both eyes and all related structures Neck: Neck: supple and no JVD Resp: Effort & Inspection: normal respiratory effort Auscultation: clear to auscultation bilaterally Cardio: Rate: regular rate Rhythm: regular rhythm GI: GI Palp: Yes Soft to palpation Auscultation: normal bowel sounds Skin: General skin exam: normal color and no rashes or lesions noted Neuro: Other: patient is awake alert well oriented has normal speech and language function normal cranial examination left leg weakness with depressed reflexes and the foot drop of the left lower extremity progressing well Extrem: Other: left leg weakness along with the atrophy primarily of the anterior compartment of the left leg knee AFO for quite some time The incision from the left hip surgery is clean Psych: Mental Status: mental status grossly normal Objective Data Vital Signs Vital Signs: Vital Signs - 24 hr 04/27/20 14:00 04/27/20 20:15 04/27/20 22:00 Temperature 37.3 C 36.4 C Pulse Rate 104 H 92 86 Respiratory Rate 20 9 L 18 Blood Pressure 134/81 112/64 Pulse Oximetry 95 92 95 04/28/20 05:56 04/28/20 08:23 Temperature 36.6 C Pulse Rate 82 Respiratory Rate 20 Blood Pressure 120/76 Pulse Oximetry 98 93 Intake/Output Intake/Output: Intake & Output 04/25/20 04/26/20 04/27/20 04/28/20 23:59 23:59 23:59 23:59 Intake Total 480 1320 240 Balance 480 1320 240 Meds/Results Medications: Active Medications Generic Name Dose Route Start Last Admin Trade Name Freq PRN Reason Stop Dose Admin Acetaminophen 1,000 mg 04/27/20 00:00 04/28/20 06:09 Tylenol Tablet PO 1,000 mg Q6HR CEFER[facility] Administration Albuterol 1 puff 04/26/20 19:08 Proventil Hfa INHALATION Q6H PRN shortness of breath or wheezing Apixaban 2.5 mg 04/26/20 21:00 04/28/20 08:36 Eliquis PO 2.5 mg Q12HR [facility] Administration Aspirin 81 mg 04/26/20 21:00 04/27/20 20:39 Aspirin Chewable PO 81 mg HS [facility] Administration Budesonide/Formoterol Fumarate 2 puff 04/26/20 20:00 04/28/20 08:22 Symbicort 160-4.5 Mcg (*Sp) Inhaler INHALATION 2 puff Q12HRT [facility] Administration Diazepam 2 mg 04/26/20 21:00 04/28/20 08:36 Valium Po PO 2 mg Q12HR [facility] Administration Escitalopram Oxalate 5 mg 04/27/20 09:00 04/28/20 08:36 Lexapro PO 5 mg DAILY [facility] Administration Famotidine 20 mg 04/26/20 21:00 04/28/20 08:36 Pepcid PO 20 mg Q12HR [facility] Administration Fluticasone Propionate 2 spray 04/28/20 09:00 04/28/20 08:37 Flonase 0.05% Nasal [place] NASAL 2 spray QAM [facility] Administration Lisinopril 10 mg 04/27/20 09:00 04/28/20 08:37 Prinivil PO 10 mg DAILY [facility] Administration Loratadine 10 mg 04/27/20 09:00 04/28/20
[2020-04-28] MEDS: TIZANIDINE HCL 4 MG TABLET PO ×3 (13:03→20:53)
[2020-04-28 14:00] VITALS: BP 105/58; PULSE 92; RESP 16; TEMP 35.6; O2SAT 92
--- NOTE | 2020-04-28 14:15 | PCPTNOTE ---
Timmy Morocho was evaluated for a heavy duty/tall standard walker on 04/28/2020 by this physical therapist. The walker will resolve patient's mobility limitations and will be used for ADL's within the home. The patient can safely use the walker. ?The walker will resolve the patient?s mobility deficits, including transfers/gait/ADL's.
[2020-04-28 19:50] VITALS: PULSE 89; RESP 16; O2SAT 96
[2020-04-28] MEDS: ASPIRIN 81 MG CHEWABLE TABLET PO (20:54)
[2020-04-28] MEDS: SIMVASTATIN 10 MG TABLET PO (20:55)
[2020-04-28 22:00] VITALS: BP 111/63; PULSE 89; RESP 16; TEMP 36.7; O2SAT 96
[2020-04-29] MEDS: ACETAMINOPHEN 500 MG TABLET 1000 MG PO ×4 (00:22→17:47)
[2020-04-29] MEDS: oxyCODONE HCL (*CRX) 5 MG TAB IR PO ×6 (00:22→21:15)
[2020-04-29] MEDS: TIZANIDINE HCL 4 MG TABLET PO ×6 (00:23→21:15)
[2020-04-29 06:00] VITALS: BP 123/74; PULSE 72; RESP 18; TEMP 36.7; O2SAT 99
[2020-04-29] MEDS: LORATADINE 10 MG TABLET PO (08:47)
[2020-04-29] MEDS: polyethylene glycoL 3350 17 GM POWD.PACK PO (08:47)
[2020-04-29] MEDS: diazePAM (*CRX) 2 MG TABLET PO ×2 (08:47→21:15)
[2020-04-29] MEDS: lisinopriL 10 MG TABLET PO (08:47)
[2020-04-29] MEDS: SENNA/DOCUSATE SODIUM TABLET 2 TAB PO ×2 (08:48→17:47)
[2020-04-29] MEDS: APIXABAN 2.5 MG TABLET PO ×2 (08:48→21:15)
[2020-04-29] MEDS: ESCITALOPRAM OXALATE 5 MG TABLET PO (08:49)
[2020-04-29] MEDS: FLUTICASONE PROPIONATE 0.05% NA SPR 16 GM BTL (*BKC) 2 SPRAY NASAL (08:49)
[2020-04-29] MEDS: FAMOTIDINE 20 MG TABLET PO ×2 (08:49→21:15)
[2020-04-29 09:00] VITALS: PULSE 78; RESP 18; O2SAT 97
[2020-04-29 14:00] VITALS: BP 136/78; PULSE 81; RESP 20; TEMP 36.8; O2SAT 97
[2020-04-29] MEDS: SIMVASTATIN 10 MG TABLET PO (21:15)
[2020-04-29] MEDS: ASPIRIN 81 MG CHEWABLE TABLET PO (21:15)
[2020-04-29 22:00] VITALS: BP 114/52; PULSE 71; RESP 16; TEMP 36.3; O2SAT 96
[2020-04-30] MEDS: TIZANIDINE HCL 4 MG TABLET PO ×6 (00:59→20:56)
[2020-04-30] MEDS: ACETAMINOPHEN 500 MG TABLET 1000 MG PO ×4 (00:59→17:34)
[2020-04-30] MEDS: oxyCODONE HCL (*CRX) 5 MG TAB IR PO ×6 (00:59→20:55)
[2020-04-30 05:44] VITALS: BP 172/68; PULSE 61; RESP 14; TEMP 36.8; O2SAT 97
[2020-04-30] MEDS: lisinopriL 10 MG TABLET PO (08:33)
[2020-04-30] MEDS: diazePAM (*CRX) 2 MG TABLET PO ×2 (08:33→20:55)
[2020-04-30] MEDS: LORATADINE 10 MG TABLET PO (08:33)
[2020-04-30] MEDS: FAMOTIDINE 20 MG TABLET PO ×2 (08:33→20:55)
[2020-04-30] MEDS: ESCITALOPRAM OXALATE 5 MG TABLET PO (08:33)
[2020-04-30] MEDS: APIXABAN 2.5 MG TABLET PO ×2 (08:34→20:55)
[2020-04-30] MEDS: FLUTICASONE PROPIONATE 0.05% NA SPR 16 GM BTL (*BKC) 2 SPRAY NASAL (08:34)
--- NOTE | 2020-04-30 12:42 | WPDNEURORHBP ---
Subjective Date/time seen: 04/30/20 12:42 Interval history: this 75-year-old gentleman is here status post left hip fracture followed by surgery long-standing left foot drop and also low back pain for which she has had fusion performed in the remote past the patient is doing fairly well denies any fever chills headache nausea vomiting chest pain shortness of breath Review of Systems Review of Systems: All systems reviewed & are unremarkable except as noted in HPI and below Functional Status Ambulation Ability Ability to Ambulate 10 Feet: Contact Guard Ability to Ambulate 50 Feet With 2 Turns: Contact Guard Ambulation Assistive Devices: Walker, Standard Transfers Ability Ability to Transfer In/Out of Chair: Contact Guard Exam Const: General: comfortable and no acute distress HENMT: General nose exam: Normal nares present Mouth: Yes moist mucous membranes Eyes: General: appearance normal, both eyes and all related structures Neck: Neck: supple and no JVD Resp: Effort & Inspection: normal respiratory effort Auscultation: clear to auscultation bilaterally Cardio: Rate: regular rate Rhythm: regular rhythm GI: GI Palp: Yes Soft to palpation Auscultation: normal bowel sounds Skin: General skin exam: normal color and no rashes or lesions noted Neuro: Other: patient is awake alert well oriented has normal speech function normal cranial examination decreased strength of course with limitation of the weight-bearing of the left lower extremity and long-standing left foot drop with loss of more muscle bulk in that extremity and AFO Extrem: Other: left foot drop and leg for legs weakness more so than the right side Psych: Mental Status: mental status grossly normal Objective Data Vital Signs Vital Signs: Vital Signs - 24 hr 04/29/20 14:00 04/29/20 22:00 04/30/20 05:44 Temperature 36.8 C 36.3 C L 36.8 C Pulse Rate 81 71 61 Respiratory Rate 20 16 14 Blood Pressure 136/78 114/52 L 172/68 H Pulse Oximetry 97 96 97 Intake/Output Intake/Output: Intake & Output 04/27/20 04/28/20 04/29/20 04/30/20 23:59 23:59 23:59 23:59 Intake Total 1320 720 480 240 Balance 1320 720 480 240 Meds/Results Medications: Active Medications Generic Name Dose Route Start Last Admin Trade Name Freq PRN Reason Stop Dose Admin Acetaminophen 1,000 mg 04/27/20 00:00 04/30/20 12:17 Tylenol Tablet PO 1,000 mg Q6HR CEFERINO Administration Albuterol 1 puff 04/26/20 19:08 Proventil Hfa INHALATION Q6H PRN shortness of breath or wheezing Apixaban 2.5 mg 04/26/20 21:00 04/30/20 08:34 Eliquis PO 2.5 mg Q12HR CEFERINO Administration Aspirin 81 mg 04/26/20 21:00 04/29/20 21:15 Aspirin Chewable PO 81 mg HS CEFERINO Administration Budesonide/Formoterol Fumarate 2 puff 04/26/20 20:00 04/30/20 09:19 Symbicort 160-4.5 Mcg (*Sp) Inhaler INHALATION 2 puff Q12HRT CEFERINO Administration Diazepam 2 mg 04/26/20 21:00 04/30/20 08:33 Valium Po PO 2 mg Q12HR [facility]FERINO Administration Escitalopram Oxalate 5 mg 04/27/20 09:00 04/30/20 08:33 Lexapro PO 5 mg DAILY [facility]FERINO Administration Famotidine 20 mg 04/26/20 21:00 04/30/20 08:33 Pepcid PO 20 mg Q12HR CEFERINO Administration Fluticasone Propionate 2 spray 04/28/20 09:00 04/30/20 08:34 Flonase 0.05% Nasal [place] NASAL 2 spray QAM [facility] Administration Lisinopril 10 mg 04/27/20 09:00 04/30/20 08:33 Prinivil PO 10 mg DAILY CEFERINO Administration Loratadine 10 mg 04/27/20 09:00 04/30/20 08:33 Claritin PO 10 mg QAM [facility] Administration Magnesium Hydroxide 30 ml 04/26/20 19:08 Milk Of Magnesia PO BID PRN Constipation Oxycodone HCl 5 mg 04/28/20 17:00 04/30/20 12:17 Roxicodone Ir Tablet PO 5 mg Q4HR [facility]FER[facility] Administration Polyethylene Glycol 17 gm 04/27/20 09:00 04/30/20 08:34 Miralax PO Not Given QAM [facility] Senna/Docusate Sodium 2 tab 04/27/20 09:00 04/30/20 08:34 Senokot
[2020-04-30 14:00] VITALS: BP 120/62; PULSE 81; RESP 18; TEMP 35.9; O2SAT 95
[2020-04-30] MEDS: SENNA/DOCUSATE SODIUM TABLET 2 TAB PO (17:34)
[2020-04-30] MEDS: ASPIRIN 81 MG CHEWABLE TABLET PO (20:55)
[2020-04-30] MEDS: SIMVASTATIN 10 MG TABLET PO (20:55)
[2020-04-30 21:24] VITALS: BP 104/55; PULSE 74; RESP 20; TEMP 36.4; O2SAT 93
[2020-05-01] MEDS: ACETAMINOPHEN 500 MG TABLET 1000 MG PO ×4 (00:29→18:11)
[2020-05-01] MEDS: oxyCODONE HCL (*CRX) 5 MG TAB IR PO ×6 (00:29→21:13)
[2020-05-01] MEDS: TIZANIDINE HCL 4 MG TABLET PO ×6 (00:29→21:13)
[2020-05-01 05:54] VITALS: BP 115/61; PULSE 67; RESP 18; TEMP 36.6; O2SAT 96
[2020-05-01] MEDS: APIXABAN 2.5 MG TABLET PO ×2 (08:58→21:13)
[2020-05-01] MEDS: diazePAM (*CRX) 2 MG TABLET PO ×2 (08:58→21:13)
[2020-05-01] MEDS: FLUTICASONE PROPIONATE 0.05% NA SPR 16 GM BTL (*BKC) 2 SPRAY NASAL (08:59)
[2020-05-01] MEDS: ESCITALOPRAM OXALATE 5 MG TABLET PO (08:59)
[2020-05-01] MEDS: FAMOTIDINE 20 MG TABLET PO ×2 (08:59→21:13)
[2020-05-01] MEDS: LORATADINE 10 MG TABLET PO (09:00)
[2020-05-01] MEDS: lisinopriL 10 MG TABLET PO (09:00)
--- NOTE | 2020-05-01 13:03 | WPDNEURORHBP ---
Subjective Date/time seen: 05/01/20 13:03 75 years old male admitted to the rehab with history of [place] in [place] did displace left femur intertrochanteric fracture with Verus angulation requiring open reduction internal fixation with intertrochanteric nailing by Dr. Nguyễn perez with ongoing history of 1. Hypertension 2. Bronchial asthma 3. Sleep apnea 4. Left foot drop secondary to low back surgery longtime ago Review of Systems Review of Systems: All systems reviewed & are unremarkable except as noted in HPI and below Functional Status Ambulation Ability Ability to Ambulate 10 Feet: Contact Guard Ability to Ambulate 50 Feet With 2 Turns: Contact Guard Ambulation Assistive Devices: Walker, Standard Transfers Ability Ability to Transfer In/Out of Chair: Contact Guard Exam Narrative: Exam Narrative: examination reveals him to be awake alert comfortable in no acute distress ear nose throat examination normal with moist mucous membranes no dehydration no drainage heart regular lungs clear to auscultation with no crepitation abdomen is soft normal bowel sounds skin normal neurologically awake alert oriented with generalized weakness handicapped by the recent surgery of the left hip with obvious left foot drop and decreased muscle mass of the left lower extremity Objective Data Vital Signs Vital Signs: Vital Signs - 24 hr 04/30/20 14:00 04/30/20 21:24 05/01/20 05:54 Temperature 35.9 C L 36.4 C 36.6 C Pulse Rate 81 74 67 Respiratory Rate 18 20 18 Blood Pressure 120/62 104/55 L 115/61 Pulse Oximetry 95 93 96 Intake/Output Intake/Output: Intake & Output 04/28/20 04/29/20 04/30/20 05/01/20 23:59 23:59 23:59 23:59 Intake Total 720 480 720 240 Balance 720 480 720 240 Meds/Results Medications: Active Medications Generic Name Dose Route Start Last Admin Trade Name Freq PRN Reason Stop Dose Admin Acetaminophen 1,000 mg 04/27/20 00:00 05/01/20 05:29 Tylenol Tablet PO 1,000 mg Q6HR CEFERINO Administration Albuterol 1 puff 04/26/20 19:08 Proventil Hfa INHALATION Q6H PRN shortness of breath or wheezing Apixaban 2.5 mg 04/26/20 21:00 05/01/20 08:58 Eliquis PO 2.5 mg Q12HR [facility] Administration Aspirin 81 mg 04/26/20 21:00 04/30/20 20:55 Aspirin Chewable PO 81 mg HS [facility]FER[facility] Administration Budesonide/Formoterol Fumarate 2 puff 04/26/20 20:00 05/01/20 09:13 Symbicort 160-4.5 Mcg (*Sp) Inhaler INHALATION 2 puff Q12HRT [facility] Administration Diazepam 2 mg 04/26/20 21:00 05/01/20 08:58 Valium Po PO 2 mg Q12HR [facility] Administration Escitalopram Oxalate 5 mg 04/27/20 09:00 05/01/20 08:59 Lexapro PO 5 mg DAILY [facility] Administration Famotidine 20 mg 04/26/20 21:00 05/01/20 08:59 Pepcid PO 20 mg Q12HR [facility] Administration Fluticasone Propionate 2 spray 04/28/20 09:00 05/01/20 08:59 Flonase 0.05% Nasal [place] NASAL 2 spray QAM [facility] Administration Lisinopril 10 mg 04/27/20 09:00 05/01/20 09:00 Prinivil PO 10 mg DAILY [facility] Administration Loratadine 10 mg 04/27/20 09:00 05/01/20 09:00 Claritin PO 10 mg QAM [facility] Administration Magnesium Hydroxide 30 ml 04/26/20 19:08 Milk Of Magnesia PO BID PRN Constipation Oxycodone HCl 5 mg 04/28/20 17:00 05/01/20 08:58 Roxicodone Ir Tablet PO 5 mg Q4HR [facility] Administration Polyethylene Glycol 17 gm 04/27/20 09:00 05/01/20 09:02 Miralax PO Not Given QAM [facility] Senna/Docusate Sodium 2 tab 04/27/20 09:00 05/01/20 08:58 Senokot S Tablet PO Not Given BID [facility] Simvastatin 10 mg 04/26/20 21:00 04/30/20 20:55 Zocor PO 10 mg HS [facility] Administration Tizanidine HCl 4 mg 04/28/20 17:00 05/01/20 09:01 Zanaflex PO 4 mg Q4HR [facility] Administration Progress Note: A&P Assessment and Plan (1) Fusion of lumbar spine: Code(s): M43.26 - Fusion of spine, lumbar region Status: Acute (2) Left foot drop: Code(s): M21.3
[2020-05-01 14:00] VITALS: BP 100/63; PULSE 68; RESP 16; TEMP 36.5; O2SAT 95
[2020-05-01 21:11] VITALS: BP 97/53; PULSE 74; RESP 18; TEMP 35.9; O2SAT 95
[2020-05-01] MEDS: SIMVASTATIN 10 MG TABLET PO (21:13)
[2020-05-01] MEDS: ASPIRIN 81 MG CHEWABLE TABLET PO (21:14)
[2020-05-02] MEDS: ACETAMINOPHEN 500 MG TABLET 1000 MG PO ×4 (00:26→17:50)
[2020-05-02] MEDS: oxyCODONE HCL (*CRX) 5 MG TAB IR PO ×6 (00:26→20:54)
[2020-05-02] MEDS: TIZANIDINE HCL 4 MG TABLET PO ×6 (00:26→20:54)
[2020-05-02 05:16] VITALS: BP 109/62; PULSE 65; RESP 20; TEMP 36.4; O2SAT 90
[2020-05-02] MEDS: lisinopriL 10 MG TABLET PO (09:34)
[2020-05-02] MEDS: diazePAM (*CRX) 2 MG TABLET PO ×2 (09:34→20:54)
[2020-05-02] MEDS: ESCITALOPRAM OXALATE 5 MG TABLET PO (09:34)
[2020-05-02] MEDS: FAMOTIDINE 20 MG TABLET PO ×2 (09:34→20:54)
[2020-05-02] MEDS: FLUTICASONE PROPIONATE 0.05% NA SPR 16 GM BTL (*BKC) 2 SPRAY NASAL (09:35)
[2020-05-02] MEDS: APIXABAN 2.5 MG TABLET PO ×2 (09:35→20:55)
[2020-05-02] MEDS: LORATADINE 10 MG TABLET PO (09:36)
[2020-05-02 14:00] VITALS: BP 106/54; PULSE 72; RESP 18; TEMP 36; O2SAT 97
[2020-05-02] MEDS: ASPIRIN 81 MG CHEWABLE TABLET PO (20:53)
[2020-05-02] MEDS: SIMVASTATIN 10 MG TABLET PO (20:54)
[2020-05-02 22:00] VITALS: BP 116/68; PULSE 62; RESP 18; TEMP 36.3; O2SAT 94
[2020-05-02 22:35] VITALS: PULSE 65; O2SAT 95
[2020-05-03] MEDS: oxyCODONE HCL (*CRX) 5 MG TAB IR PO ×6 (01:33→21:01)
[2020-05-03] MEDS: TIZANIDINE HCL 4 MG TABLET PO ×6 (01:34→21:01)
[2020-05-03] MEDS: ACETAMINOPHEN 500 MG TABLET 1000 MG PO ×4 (01:34→17:56)
[2020-05-03 06:00] VITALS: BP 103/65; PULSE 65; RESP 16; TEMP 36.2; O2SAT 99
[2020-05-03] MEDS: SENNA/DOCUSATE SODIUM TABLET 2 TAB PO (09:46)
[2020-05-03] MEDS: FLUTICASONE PROPIONATE 0.05% NA SPR 16 GM BTL (*BKC) 2 SPRAY NASAL (09:47)
[2020-05-03] MEDS: lisinopriL 10 MG TABLET PO (09:47)
[2020-05-03] MEDS: FAMOTIDINE 20 MG TABLET PO ×2 (09:47→21:01)
[2020-05-03] MEDS: ESCITALOPRAM OXALATE 5 MG TABLET PO (09:47)
[2020-05-03] MEDS: APIXABAN 2.5 MG TABLET PO ×2 (09:47→21:01)
[2020-05-03] MEDS: LORATADINE 10 MG TABLET PO (09:48)
[2020-05-03] MEDS: diazePAM (*CRX) 2 MG TABLET PO ×2 (09:52→21:01)
--- NOTE | 2020-05-03 10:34 | WPDNEURORHBP ---
Subjective Date/time seen: 05/03/20 10:34 75 years old with history of left femur intertrochanteric fracture with Verus angulation requiring open reduction and internal fixation and nailing med Dr. Nguyễn perez with history of hypertension, bronchial asthma, sleep apnea, and left foot drop secondary to low back surgery in the past involving the physical therapy and occupation therapy using the contact guard walking up to 50ft V2 turns with standard walker Review of Systems Review of Systems: All systems reviewed & are unremarkable except as noted in HPI and below Functional Status Ambulation Ability Ability to Ambulate 10 Feet: Standby Assistance Ability to Ambulate 50 Feet With 2 Turns: Contact Guard Ambulation Assistive Devices: Walker, Standard Transfers Ability Ability to Transfer In/Out of Chair: Contact Guard Exam Narrative: Exam Narrative: examination today revealed him to be awake alert cooperative in no distress ear nose throat examination normal. Mucous membranes had LD no drainage. Heart regular. Lungs clear with no rhonchi or crepitation. Abdomen is soft with no organomegaly normal bowel sounds. Neurological examination remains unchanged Objective Data Vital Signs Vital Signs: Vital Signs - 24 hr 05/02/20 14:00 05/02/20 22:00 05/02/20 22:35 Temperature 36.0 C L 36.3 C L Pulse Rate 72 62 65 Respiratory Rate 18 18 Blood Pressure 106/54 L 116/68 Pulse Oximetry 97 94 95 05/03/20 06:00 Temperature 36.2 C L Pulse Rate 65 Respiratory Rate 16 Blood Pressure 103/65 Pulse Oximetry 99 Intake/Output Intake/Output: Intake & Output 04/30/20 05/01/20 05/02/20 05/03/20 23:59 23:59 23:59 23:59 Intake Total 720 960 720 480 Balance 720 960 720 480 Meds/Results Medications: Active Medications Generic Name Dose Route Start Last Admin Trade Name Freq PRN Reason Stop Dose Admin Acetaminophen 1,000 mg 04/27/20 00:00 05/03/20 06:11 Tylenol Tablet PO 1,000 mg Q6HR CEFERINO Administration Albuterol 1 puff 04/26/20 19:08 Proventil Hfa INHALATION Q6H PRN shortness of breath or wheezing Apixaban 2.5 mg 04/26/20 21:00 05/03/20 09:47 Eliquis PO 2.5 mg Q12HR [facility] Administration Aspirin 81 mg 04/26/20 21:00 05/02/20 20:53 Aspirin Chewable PO 81 mg HS [facility] Administration Budesonide/Formoterol Fumarate 2 puff 04/26/20 20:00 05/03/20 08:34 Symbicort 160-4.5 Mcg (*Sp) Inhaler INHALATION 2 puff Q12HRT [facility] Administration Diazepam 2 mg 04/26/20 21:00 05/03/20 09:52 Valium Po PO 2 mg Q12HR [facility] Administration Escitalopram Oxalate 5 mg 04/27/20 09:00 05/03/20 09:47 Lexapro PO 5 mg DAILY [facility] Administration Famotidine 20 mg 04/26/20 21:00 05/03/20 09:47 Pepcid PO 20 mg Q12HR [facility] Administration Fluticasone Propionate 2 spray 04/28/20 09:00 05/03/20 09:47 Flonase 0.05% Nasal [place] NASAL 2 spray QAM [facility] Administration Lisinopril 10 mg 04/27/20 09:00 05/03/20 09:47 Prinivil PO 10 mg DAILY [facility] Administration Loratadine 10 mg 04/27/20 09:00 05/03/20 09:48 Claritin PO 10 mg QAM [facility] Administration Magnesium Hydroxide 30 ml 04/26/20 19:08 Milk Of Magnesia PO BID PRN Constipation Oxycodone HCl 5 mg 04/28/20 17:00 05/03/20 09:52 Roxicodone Ir Tablet PO 5 mg Q4HR [facility] Administration Polyethylene Glycol 17 gm 04/27/20 09:00 05/03/20 09:54 Miralax PO Not Given QAM [facility] Senna/Docusate Sodium 2 tab 04/27/20 09:00 05/03/20 09:46 Senokot S Tablet PO 2 tab BID [facility] Administration Simvastatin 10 mg 04/26/20 21:00 05/02/20 20:54 Zocor PO 10 mg HS [facility] Administration Tizanidine HCl 4 mg 04/28/20 17:00 05/03/20 09:48 Zanaflex PO 4 mg Q4HR [facility]FER[facility] Administration Progress Note: A&P Assessment and Plan (1) Fusion of lumbar spine: Code(s): M43.26 - Fusion of spine, lumbar region Status: Acute (2) Left foot drop: Cod
[2020-05-03 14:00] VITALS: BP 99/62; PULSE 76; RESP 20; TEMP 36.4; O2SAT 96
[2020-05-03] MEDS: ASPIRIN 81 MG CHEWABLE TABLET PO (21:01)
[2020-05-03] MEDS: SIMVASTATIN 10 MG TABLET PO (21:01)
[2020-05-03 21:25] VITALS: BP 112/66; PULSE 69; RESP 22; TEMP 36.6; O2SAT 97
--- NOTE | 2020-05-03 23:13 | PCRCNOTE ---
Window of time for administration has passed. See next scheduled administration.
[2020-05-03 23:14] VITALS: PULSE 69; RESP 22; O2SAT 96
[2020-05-04] MEDS: TIZANIDINE HCL 4 MG TABLET PO ×3 (00:30→08:20)
[2020-05-04] MEDS: ACETAMINOPHEN 500 MG TABLET 1000 MG PO ×4 (00:30→17:58)
[2020-05-04] MEDS: oxyCODONE HCL (*CRX) 5 MG TAB IR PO ×6 (00:30→20:50)
[2020-05-04 05:13] VITALS: BP 107/72; PULSE 59; RESP 18; TEMP 35.9; O2SAT 98
[2020-05-04 05:37] LABS: Basophils Absolute Auto 0.1 K/mm3 (0.0-0.1); Basophils Percent Auto 1.1 % (0.2-1.2); Eosinophils Absolute Auto 0.3 K/mm3 (0-0.3); Eosinophils Percent Auto 6.1 % (0-4.4); Hematocrit 30.7 % (42.0-52.0); Hemoglobin 10.2 g/dL (14.0-18.0); Immature Granulocyte Absolute 0.11 K/mm3 (0.00-0.031); Immature Granulocyte Percent A 2.4 % (0-0.5); Lymphocytes Absolute Auto 0.87 K/mm3 (0.9-3.2); Mean Corpuscular HGB Conc 33.2 g/dl (32-36); Mean Corpuscular Hemoglobin 30.4 pg (26-34); Mean Corpuscular Volume 91.4 fl (80-100); Mean Platelet Volume 8.8 fl (7.4-10.4); Monocytes Absolute Auto 0.5 K/mm3 (0.1-0.6); Monocytes Percent Auto 10.5 % (2.6-8.5); Neutrophils Absolute Auto 2.8 K/mm3 (1.3-6.7); Neutrophils Percent Auto 60.9 % (45.5-73.1); Platelet Count Result 339 k/mm3 (150-375); Red Blood Count 3.36 M/mm3 (4.6-6.20); Red Cell Distribution Width 13.5 % (11.5-14.5); White Blood Count 4.6 K/mm3 (4.5-10.0)
[2020-05-04 05:47] LABS: Anion Gap 9 mmol/L (8-16); Blood Urea Nitrogen 19 mg/dL (9-20); Calcium 9.2 mg/dL (8.4-10.2); Carbon Dioxide 29 mmol/L (22-30); Chloride 99 mmol/L (98-107); Estimated CRCL calculation 98 ml/min; Estimated Glomerular Filt Rate > 60; Glucose 95 mg/dL (75-110); Potassium 4.1 mmol/L (3.4-5.0); Sodium 137 mmol/L (137-145)
[2020-05-04] MEDS: ESCITALOPRAM OXALATE 5 MG TABLET PO (08:19)
[2020-05-04] MEDS: FLUTICASONE PROPIONATE 0.05% NA SPR 16 GM BTL (*BKC) 2 SPRAY NASAL (08:19)
[2020-05-04] MEDS: diazePAM (*CRX) 2 MG TABLET PO ×2 (08:19→20:49)
[2020-05-04] MEDS: FAMOTIDINE 20 MG TABLET PO ×2 (08:19→20:49)
[2020-05-04] MEDS: APIXABAN 2.5 MG TABLET PO ×2 (08:19→20:50)
[2020-05-04] MEDS: LORATADINE 10 MG TABLET PO (08:20)
[2020-05-04] MEDS: lisinopriL 10 MG TABLET PO (08:20)
[2020-05-04 09:31] VITALS: PULSE 91; RESP 18; O2SAT 95
[2020-05-04] MEDS: TIZANIDINE HCL 2 MG TABLET PO ×3 (12:42→20:49)
--- NOTE | 2020-05-04 12:46 | PCDIET ---
Nutrition Follow-Up Complete: Nutrition Diagnosis: Obesity related to history of excessive energy intake as evidenced by BMI of 35.9. Nutrition Goal: Patient to consume 75% of meals or greater. Goal met. Patient consuming 75-100% of most meals on heart healthy, high fiber diet. No new recommendations at this time. Last recorded weight is 127 kg. Recommend obtaining new weight. Bowel Motility: Last documented BM on 05/02/20. Labs Reviewed: Hgb (10.2), Hct (30.7) Meds Noted: Albuterol, Symbicort, Pepcid, Roxicodone Additional Notes: Left hip incision with dressing. No documented pressure sores. Nutrition Monitoring and Evaluation: Follow up every 7 days.
--- NOTE | 2020-05-04 13:38 | PCPTNOTE ---
Tiffany Sandoval PT completed an inpatient rehab wheelchair evaluation on Timmy Morocho on 05/04/2020. The patient is unable to safely and independently ambulate household distances due to their current impairments and current Left lower extremity partial weightbearing status. Their diagnosis is Left hip fx and their impairments include decreased strength, decreased endurance, decreased range of motion, and decreased balance, lower extremity weakness. Mr. Morocho's weight bearing status is LEFT lower extremity partial weightbearing. The patient demonstrates significant functional mobility limitations that impair their ability to participate in mobility-related activities of daily living (MRADLs), including toileting, feeding, dressing, grooming, and bathing in the customary locations in the home. These limitations cannot be sufficiently resolved by the use of an appropriately fitted cane or walker. It is recommended that the patient utilize a wheelchair for functional mobility within the home in order to facilitate optimal safety, independence and participation in all MRADL's and adequately access their home environment on a regular basis. The patient's home provides adequate access between rooms, maneuvering space, and surfaces to accommodate the recommended wheelchair. The use of a wheelchair for functional mobility is strongly recommended and the patient is receptive to using the wheelchair. The use of this wheelchair will significantly improve the patient's ability to participate in MRADLS and the patient will use it on a regular basis in the home. This will facilitate optimal safety, independence, and participation. The patient has demonstrated sufficient physical and mental capabilities needed to safely propel a manual wheelchair that is provided in the home during a typical day. Recommended Wheelchair Frame: Heavy Duty (127kg; 280lbs) Recommended Wheelchair Size: 24 x 20 (given patient's anatomical hip width of 22 ) Recommended Wheelchair Cushion:standard Wheelchair Leg Recommendations: Bilateral elevating leg rests -A heavy duty wheelchair is recommended because the patient weighs more than 250 pounds. - Elevating legrests are recommended because the patient has significant edema of the lower extremities that requires an elevating legrest. -Anti-tippers are recommended due to patient demonstrating increased risk for falls. They would benefit from anti-tippers with added safety and stabilization. -Adjustable arm height is recommended because the patient requires an arm height that is different than that which is available using non-adjustable arms. The patient spends at least 2 hours per day in the wheelchair. Tiffany Sandoval PT, DPT ____9//20 Evaluating Therapist Date I agree with and certify that the above recommendation is medically necessary. Referring Physician Date
[2020-05-04 14:00] VITALS: BP 127/76; PULSE 91; RESP 20; TEMP 36.4; O2SAT 94
--- NOTE | 2020-05-04 15:00 | WPDNEURORHBP ---
Subjective Date/time seen: 05/04/20 15:00 Interval history: this 75-year-old patient is here after having had surgery for the left hip fracture he has underlying left foot drop also for which he uses AFO he is making progress fairly decently and well walked about 150 feet he has been little sleepy I believe is the combination of the narcotic and the tizanidine he takes and I am planning to cut back little bit on the tizanidine otherwise he denies any headache nausea vomiting chest pain shortness of breath fever chills sore throat Review of Systems Review of Systems: All systems reviewed & are unremarkable except as noted in HPI and below Functional Status Ambulation Ability Ability to Ambulate 10 Feet: Standby Assistance Ability to Ambulate 50 Feet With 2 Turns: Standby Assistance Ability to Ambulate 150 Feet: Standby Assistance Ambulation Assistive Devices: Walker, Standard Transfers Ability Ability to Transfer In/Out of Chair: Contact Guard Exam Const: General: comfortable and no acute distress HENMT: General nose exam: Normal nares present Mouth: Yes moist mucous membranes Eyes: General: appearance normal, both eyes and all related structures Neck: Neck: supple and no JVD Resp: Effort & Inspection: normal respiratory effort Auscultation: clear to auscultation bilaterally Cardio: Rate: regular rate Rhythm: regular rhythm GI: GI Palp: Yes Soft to palpation Auscultation: normal bowel sounds Skin: General skin exam: normal color and no rashes or lesions noted Neuro: Other: patient is awake alert well oriented communicated of his neurological status is improving overall excellent progress Extrem: Other: left hip fracture is clean healthy left AFO was stable Psych: Mental Status: mental status grossly normal Objective Data Vital Signs Vital Signs: Vital Signs - 24 hr 05/03/20 21:25 05/03/20 23:14 05/04/20 05:13 Temperature 36.6 C 35.9 C L Pulse Rate 69 69 59 L Respiratory Rate 22 H 22 H 18 Blood Pressure 112/66 107/72 Pulse Oximetry 97 96 98 05/04/20 09:31 05/04/20 14:00 Temperature 36.4 C Pulse Rate 91 91 Respiratory Rate 18 20 Blood Pressure 127/76 Pulse Oximetry 95 94 Intake/Output Intake/Output: Intake & Output 09/26/20 09/27/20 09/28/20 09/29/20 23:59 23:59 23:59 23:59 Intake Total 653 824 7064 480 Balance 169 350 8129 480 Meds/Results Medications: Active Medications Generic Name Dose Route Start Last Admin Trade Name Yessenia PRN Reason Stop Dose Admin Acetaminophen 1,000 mg 04/27/20 00:00 05/04/20 12:42 Tylenol Tablet PO 1,000 mg Q6HR CEFERINO Administration Albuterol 1 puff 04/26/20 19:08 Proventil Hfa INHALATION Q6H PRN shortness of breath or wheezing Apixaban 2.5 mg 04/26/20 21:00 05/04/20 08:19 Eliquis PO 2.5 mg Q12HR [facility]FER[facility] Administration Aspirin 81 mg 04/26/20 21:00 05/03/20 21:01 Aspirin Chewable PO 81 mg HS [facility] Administration Budesonide/Formoterol Fumarate 2 puff 04/26/20 20:00 05/04/20 09:30 Symbicort 160-4.5 Mcg (*Sp) Inhaler INHALATION 2 puff Q12HRT [facility] Administration Diazepam 2 mg 04/26/20 21:00 05/04/20 08:19 Valium Po PO 2 mg Q12HR [facility] Administration Escitalopram Oxalate 5 mg 04/27/20 09:00 05/04/20 08:19 Lexapro PO 5 mg DAILY [facility] Administration Famotidine 20 mg 04/26/20 21:00 05/04/20 08:19 Pepcid PO 20 mg Q12HR [facility] Administration Fluticasone Propionate 1 spray 05/04/20 21:00 Flonase 0.05% Nasal [place] NASAL Q12H [facility]FER[facility] Lisinopril 10 mg 04/27/20 09:00 05/04/20 08:20 Prinivil PO 10 mg DAILY [facility] Administration Loratadine 10 mg 04/27/20 09:00 05/04/20 08:20 Claritin PO 10 mg QAM [facility] Administration Magnesium Hydroxide 30 ml 04/26/20 19:08 Milk Of Magnesia PO BID PRN Constipation Oxycodone HCl 5 mg 04/28/20 17:00 05/04/20 12:42 Roxicodone Ir Tablet PO 5 mg Q4HR [facility]FER[facility] Administration Polyethylene Glycol
[2020-05-04] MEDS: ASPIRIN 81 MG CHEWABLE TABLET PO (20:49)
[2020-05-04] MEDS: FLUTICASONE PROPIONATE 0.05% NA SPR 16 GM BTL (*BKC) 1 SPRAY NASAL (20:50)
[2020-05-04] MEDS: SIMVASTATIN 10 MG TABLET PO (20:50)
[2020-05-04 21:13] VITALS: PULSE 92
[2020-05-04 21:28] VITALS: BP 111/59; PULSE 76; RESP 20; TEMP 36.6; O2SAT 95
[2020-05-05] MEDS: TIZANIDINE HCL 2 MG TABLET PO ×5 (05:51→21:34)
[2020-05-05] MEDS: ACETAMINOPHEN 500 MG TABLET 1000 MG PO ×3 (05:51→18:09)
[2020-05-05] MEDS: oxyCODONE HCL (*CRX) 5 MG TAB IR PO ×5 (05:51→21:32)
[2020-05-05 06:00] VITALS: BP 134/72; PULSE 71; RESP 20; TEMP 36.2; O2SAT 97
[2020-05-05 08:03] VITALS: O2SAT 96
[2020-05-05] MEDS: APIXABAN 2.5 MG TABLET PO ×2 (11:08→21:34)
[2020-05-05] MEDS: diazePAM (*CRX) 2 MG TABLET PO ×2 (11:08→21:32)
[2020-05-05] MEDS: ESCITALOPRAM OXALATE 5 MG TABLET PO (11:09)
[2020-05-05] MEDS: FLUTICASONE PROPIONATE 0.05% NA SPR 16 GM BTL (*BKC) 1 SPRAY NASAL ×2 (11:09→21:36)
[2020-05-05] MEDS: FAMOTIDINE 20 MG TABLET PO ×2 (11:09→21:34)
[2020-05-05] MEDS: lisinopriL 10 MG TABLET PO (11:10)
[2020-05-05] MEDS: LORATADINE 10 MG TABLET PO (11:10)
[2020-05-05 14:00] VITALS: BP 120/76; PULSE 94; RESP 20; TEMP 36.1; O2SAT 91
--- NOTE | 2020-05-05 15:40 | WPDNEURORHBP ---
Subjective Date/time seen: 05/05/20 15:40 Interval history: this 75-year-old gentleman is here status post surgery for his left hip fracture along with long stretches long-standing history of the left foot drop with an AFO his doing fairly well is not as groggy as he was previous day his back to his usual skills of continues to communicate and alert oriented is making excellent progress of course with limitation of the weight on the left lower extremity denies any headache nausea vomiting chest pain shortness of breath fever chills sore throat Review of Systems Review of Systems: All systems reviewed & are unremarkable except as noted in HPI and below Functional Status Ambulation Ability Ability to Ambulate 10 Feet: Independent Ability to Ambulate 50 Feet With 2 Turns: Independent Ability to Ambulate 150 Feet: Standby Assistance Ambulation Assistive Devices: Walker, Standard Transfers Ability Ability to Transfer In/Out of Chair: Independent Exam Const: General: comfortable and no acute distress HENMT: General nose exam: Normal nares present Mouth: Yes moist mucous membranes Eyes: General: appearance normal, both eyes and all related structures Neck: Neck: supple and no JVD Resp: Effort & Inspection: normal respiratory effort Auscultation: clear to auscultation bilaterally Cardio: Rate: regular rate Rhythm: regular rhythm GI: GI Palp: Yes Soft to palpation Auscultation: normal bowel sounds Skin: General skin exam: normal color and no rashes or lesions noted Neuro: Other: patient is awake alert well oriented making progress in the rehab of course with the limitation of the weight-bearing status on the left lower extremity the foot drop remains the same with AFO Extrem: Other: left foot drop with AFO Psych: Mental Status: mental status grossly normal Objective Data Vital Signs Vital Signs: Vital Signs - 24 hr 05/04/20 21:13 05/04/20 21:28 05/05/20 06:00 Temperature 36.6 C 36.2 C L Pulse Rate 92 76 71 Respiratory Rate 20 20 Blood Pressure 111/59 L 134/72 Pulse Oximetry 95 97 05/05/20 08:03 Temperature Pulse Rate Respiratory Rate Blood Pressure Pulse Oximetry 96 Intake/Output Intake/Output: Intake & Output 05/02/20 05/03/20 05/04/20 05/05/20 23:59 23:59 23:59 23:59 Intake Total 720 1200 720 360 Balance 720 1200 720 360 Meds/Results Medications: Active Medications Generic Name Dose Route Start Last Admin Trade Name Titoq PRN Reason Stop Dose Admin Acetaminophen 1,000 mg 04/27/20 00:00 05/05/20 11:14 Tylenol Tablet PO 1,000 mg Q6HR CEFERINO Administration Albuterol 1 puff 04/26/20 19:08 Proventil Hfa INHALATION Q6H PRN shortness of breath or wheezing Apixaban 2.5 mg 04/26/20 21:00 05/05/20 11:08 Eliquis PO 2.5 mg Q12HR [facility]FERINO Administration Aspirin 81 mg 04/26/20 21:00 05/04/20 20:49 Aspirin Chewable PO 81 mg HS CEFERINO Administration Budesonide/Formoterol Fumarate 2 puff 04/26/20 20:00 05/05/20 08:00 Symbicort 160-4.5 Mcg (*Sp) Inhaler INHALATION 2 puff Q12HRT CEFERINO Administration Diazepam 2 mg 04/26/20 21:00 05/05/20 11:08 Valium Po PO 2 mg Q12HR CEFERINO Administration Escitalopram Oxalate 5 mg 04/27/20 09:00 05/05/20 11:09 Lexapro PO 5 mg DAILY CEFERINO Administration Famotidine 20 mg 04/26/20 21:00 05/05/20 11:09 Pepcid PO 20 mg Q12HR CEFERINO Administration Fluticasone Propionate 1 spray 05/04/20 21:00 05/05/20 11:09 Flonase 0.05% Nasal [place] NASAL 1 spray Q12H [facility]FER[facility] Administration Lisinopril 10 mg 04/27/20 09:00 05/05/20 11:10 Prinivil PO 10 mg DAILY CEFERINO Administration Loratadine 10 mg 04/27/20 09:00 05/05/20 11:10 Claritin PO 10 mg QAM [facility] Administration Magnesium Hydroxide 30 ml 04/26/20 19:08 Milk Of Magnesia PO BID PRN Constipation Oxycodone HCl 5 mg 04/28/20 17:00 05/05/20 15:15 Roxicodone Ir Tablet PO 5 mg Q4HR CEFERINO Admi
[2020-05-05] MEDS: ASPIRIN 81 MG CHEWABLE TABLET PO (21:35)
[2020-05-05] MEDS: SIMVASTATIN 10 MG TABLET PO (21:35)
[2020-05-05 21:52] VITALS: BP 104/52; PULSE 63; RESP 20; TEMP 36; O2SAT 93
[2020-05-05 21:54] VITALS: PULSE 71; RESP 18; O2SAT 95
[2020-05-06] MEDS: oxyCODONE HCL (*CRX) 5 MG TAB IR PO ×6 (01:20→21:11)
[2020-05-06] MEDS: TIZANIDINE HCL 2 MG TABLET PO ×6 (01:21→21:11)
[2020-05-06] MEDS: ACETAMINOPHEN 500 MG TABLET 1000 MG PO ×4 (01:21→17:39)
[2020-05-06 05:20] VITALS: BP 109/58; PULSE 70; RESP 20; TEMP 35.9; O2SAT 94
[2020-05-06] MEDS: FLUTICASONE PROPIONATE 0.05% NA SPR 16 GM BTL (*BKC) 1 SPRAY NASAL ×2 (10:20→21:12)
[2020-05-06] MEDS: lisinopriL 10 MG TABLET PO (10:20)
[2020-05-06] MEDS: FAMOTIDINE 20 MG TABLET PO ×2 (10:20→21:12)
[2020-05-06] MEDS: LORATADINE 10 MG TABLET PO (10:20)
[2020-05-06] MEDS: diazePAM (*CRX) 2 MG TABLET PO ×2 (10:20→21:11)
[2020-05-06] MEDS: APIXABAN 2.5 MG TABLET PO ×2 (10:21→21:11)
[2020-05-06] MEDS: ESCITALOPRAM OXALATE 5 MG TABLET PO (10:21)
[2020-05-06 14:00] VITALS: BP 101/60; PULSE 78; RESP 18; TEMP 36; O2SAT 95
[2020-05-06] MEDS: ASPIRIN 81 MG CHEWABLE TABLET PO (21:12)
[2020-05-06] MEDS: SIMVASTATIN 10 MG TABLET PO (21:13)
[2020-05-06 21:41] VITALS: PULSE 69; RESP 18
[2020-05-06 22:00] VITALS: BP 108/55; PULSE 80; RESP 19; TEMP 37.1; O2SAT 96
[2020-05-07] MEDS: ACETAMINOPHEN 500 MG TABLET 1000 MG PO ×4 (01:19→17:51)
[2020-05-07] MEDS: TIZANIDINE HCL 2 MG TABLET PO ×6 (01:19→20:46)
[2020-05-07] MEDS: oxyCODONE HCL (*CRX) 5 MG TAB IR PO ×6 (01:20→20:46)
[2020-05-07 06:00] VITALS: BP 109/62; PULSE 63; RESP 20; TEMP 36.2; O2SAT 98
[2020-05-07] MEDS: FLUTICASONE PROPIONATE 0.05% NA SPR 16 GM BTL (*BKC) 1 SPRAY NASAL ×2 (08:55→20:47)
[2020-05-07] MEDS: ESCITALOPRAM OXALATE 5 MG TABLET PO (08:55)
[2020-05-07] MEDS: LORATADINE 10 MG TABLET PO (08:55)
[2020-05-07] MEDS: APIXABAN 2.5 MG TABLET PO ×2 (08:55→20:46)
[2020-05-07] MEDS: lisinopriL 10 MG TABLET PO (08:56)
[2020-05-07] MEDS: diazePAM (*CRX) 2 MG TABLET PO ×2 (08:56→20:46)
[2020-05-07] MEDS: FAMOTIDINE 20 MG TABLET PO ×2 (08:56→20:46)
--- NOTE | 2020-05-07 13:50 | WPDNEURORHBP ---
Subjective Date/time seen: 05/07/20 13:50 Interval history: this 75-year-old gentleman is here after having had a left hip fracture is doing fairly well denies any headache nausea vomiting chest pain shortness of breath fever chills sore throat is planning to be discharged in couple of days Review of Systems Review of Systems: All systems reviewed & are unremarkable except as noted in HPI and below Functional Status Ambulation Ability Ability to Ambulate 10 Feet: Independent Ability to Ambulate 50 Feet With 2 Turns: Independent Ability to Ambulate 150 Feet: Independent Ambulation Assistive Devices: Walker, Standard Transfers Ability Ability to Transfer In/Out of Chair: Independent Exam Const: General: comfortable and no acute distress HENMT: General nose exam: Normal nares present Mouth: Yes moist mucous membranes Eyes: General: appearance normal, both eyes and all related structures Neck: Neck: supple and no JVD Resp: Effort & Inspection: normal respiratory effort Auscultation: clear to auscultation bilaterally Cardio: Rate: regular rate Rhythm: regular rhythm GI: GI Palp: Yes Soft to palpation Auscultation: normal bowel sounds Skin: General skin exam: normal color and no rashes or lesions noted Neuro: Other: patient is awake alert well oriented progress in rehab making excellent progress the left foot drop long-standing is in AFO and his strength overall is improving Extrem: Other: left foot drop with AFO stable Psych: Mental Status: mental status grossly normal Objective Data Vital Signs Vital Signs: Vital Signs - 24 hr 05/06/20 14:00 05/06/20 21:41 05/06/20 22:00 Temperature 36.0 C L 37.1 C Pulse Rate 78 69 80 Respiratory Rate 18 18 19 Blood Pressure 101/60 108/55 L Pulse Oximetry 95 96 05/07/20 06:00 Temperature 36.2 C L Pulse Rate 63 Respiratory Rate 20 Blood Pressure 109/62 Pulse Oximetry 98 Intake/Output Intake/Output: Intake & Output 05/04/20 05/05/20 05/06/20 05/07/20 23:59 23:59 23:59 23:59 Intake Total 720 840 960 240 Balance 720 840 960 240 Meds/Results Medications: Active Medications Generic Name Dose Route Start Last Admin Trade Name Freq PRN Reason Stop Dose Admin Acetaminophen 1,000 mg 04/27/20 00:00 05/07/20 12:37 Tylenol Tablet PO 1,000 mg Q6HR CEFERINO Administration Albuterol 1 puff 04/26/20 19:08 Proventil Hfa INHALATION Q6H PRN shortness of breath or wheezing Apixaban 2.5 mg 04/26/20 21:00 05/07/20 08:55 Eliquis PO 2.5 mg Q12HR CEFERINO Administration Aspirin 81 mg 04/26/20 21:00 05/06/20 21:12 Aspirin Chewable PO 81 mg HS CEFERINO Administration Budesonide/Formoterol Fumarate 2 puff 04/26/20 20:00 05/07/20 08:56 Symbicort 160-4.5 Mcg (*Sp) Inhaler INHALATION 2 puff Q12HRT CEFERINO Administration Diazepam 2 mg 04/26/20 21:00 05/07/20 08:56 Valium Po PO 2 mg Q12HR CEFERINO Administration Escitalopram Oxalate 5 mg 04/27/20 09:00 05/07/20 08:55 Lexapro PO 5 mg DAILY CEFERINO Administration Famotidine 20 mg 04/26/20 21:00 05/07/20 08:56 Pepcid PO 20 mg Q12HR CEFERINO Administration Fluticasone Propionate 1 spray 05/04/20 21:00 05/07/20 08:55 Flonase 0.05% Nasal [place] NASAL 1 spray Q12H CEFERINO Administration Lisinopril 10 mg 04/27/20 09:00 05/07/20 08:56 Prinivil PO 10 mg DAILY CEFERINO Administration Loratadine 10 mg 04/27/20 09:00 05/07/20 08:55 Claritin PO 10 mg QAM CEFERINO Administration Magnesium Hydroxide 30 ml 04/26/20 19:08 Milk Of Magnesia PO BID PRN Constipation Oxycodone HCl 5 mg 04/28/20 17:00 05/07/20 12:37 Roxicodone Ir Tablet PO 5 mg Q4HR CEFERINO Administration Polyethylene Glycol 17 gm 05/03/20 17:55 Miralax PO QAM PRN Constipation Senna/Docusate Sodium 2 tab 05/03/20 17:55 Senokot S Tablet PO BID PRN Constipation Simvastatin 10 mg 04/26/20 21:00 05/06/20 21:13 Zocor PO
[2020-05-07 14:00] VITALS: BP 92/50; PULSE 66; RESP 20; TEMP 36.2; O2SAT 99
[2020-05-07] MEDS: ASPIRIN 81 MG CHEWABLE TABLET PO (20:46)
[2020-05-07] MEDS: SIMVASTATIN 10 MG TABLET PO (20:46)
[2020-05-07 22:00] VITALS: BP 116/70; PULSE 80; RESP 18; TEMP 37.1; O2SAT 95
[2020-05-08] MEDS: oxyCODONE HCL (*CRX) 5 MG TAB IR PO ×5 (05:34→20:09)
[2020-05-08] MEDS: ACETAMINOPHEN 500 MG TABLET 1000 MG PO ×3 (05:34→18:27)
[2020-05-08] MEDS: TIZANIDINE HCL 2 MG TABLET PO ×5 (05:34→20:09)
[2020-05-08 06:00] VITALS: BP 141/71; PULSE 67; RESP 19; TEMP 36.2; O2SAT 95
[2020-05-08] MEDS: diazePAM (*CRX) 2 MG TABLET PO ×2 (09:00→20:09)
[2020-05-08] MEDS: ESCITALOPRAM OXALATE 5 MG TABLET PO (09:00)
[2020-05-08] MEDS: lisinopriL 10 MG TABLET PO (09:01)
[2020-05-08] MEDS: FLUTICASONE PROPIONATE 0.05% NA SPR 16 GM BTL (*BKC) 1 SPRAY NASAL ×2 (09:01→20:09)
[2020-05-08] MEDS: FAMOTIDINE 20 MG TABLET PO ×2 (09:01→20:09)
[2020-05-08] MEDS: APIXABAN 2.5 MG TABLET PO ×2 (09:01→20:09)
[2020-05-08] MEDS: LORATADINE 10 MG TABLET PO (09:01)
[2020-05-08 14:00] VITALS: BP 133/80; PULSE 87; RESP 20; TEMP 36; O2SAT 95
[2020-05-08] MEDS: ASPIRIN 81 MG CHEWABLE TABLET PO (20:08)
[2020-05-08] MEDS: SIMVASTATIN 10 MG TABLET PO (20:09)
[2020-05-08 22:00] VITALS: BP 101/73; PULSE 79; RESP 20; TEMP 36.9; O2SAT 94
[2020-05-09] MEDS: TIZANIDINE HCL 2 MG TABLET PO ×6 (00:06→20:10)
[2020-05-09] MEDS: ACETAMINOPHEN 500 MG TABLET 1000 MG PO ×4 (00:07→18:28)
[2020-05-09] MEDS: oxyCODONE HCL (*CRX) 5 MG TAB IR PO ×6 (00:08→20:11)
[2020-05-09 06:00] VITALS: BP 118/66; PULSE 64; RESP 16; TEMP 36.1; O2SAT 97
[2020-05-09] MEDS: diazePAM (*CRX) 2 MG TABLET PO ×2 (08:58→20:11)
[2020-05-09] MEDS: LORATADINE 10 MG TABLET PO (08:59)
[2020-05-09] MEDS: ESCITALOPRAM OXALATE 5 MG TABLET PO (08:59)
[2020-05-09] MEDS: FLUTICASONE PROPIONATE 0.05% NA SPR 16 GM BTL (*BKC) 1 SPRAY NASAL ×2 (08:59→20:10)
[2020-05-09] MEDS: FAMOTIDINE 20 MG TABLET PO ×2 (08:59→20:10)
[2020-05-09] MEDS: APIXABAN 2.5 MG TABLET PO ×2 (08:59→20:11)
[2020-05-09] MEDS: lisinopriL 10 MG TABLET PO (09:00)
[2020-05-09] MEDS: SENNA/DOCUSATE SODIUM TABLET 2 TAB PO (09:00)
[2020-05-09 10:05] VITALS: O2SAT 93
[2020-05-09 14:00] VITALS: BP 108/66; PULSE 80; RESP 18; TEMP 36.8; O2SAT 94
--- NOTE | 2020-05-09 16:34 | WPDNEURORHBP ---
Subjective Date/time seen: 05/09/20 16:34 Interval history: This 75-year-old gentleman is here after having had surgery for these left hip fracture he has done well in our rehab has no specific complaints particularly denies any headache nausea vomiting chest pain shortness of breath fever chills sore throat his ready to be discharged tomorrow with home health and the follow-up with his surgeon and also the primary care physician Review of Systems Review of Systems: All systems reviewed & are unremarkable except as noted in HPI and below Functional Status Ambulation Ability Ability to Ambulate 10 Feet: Independent Ability to Ambulate 50 Feet With 2 Turns: Independent Ability to Ambulate 150 Feet: Independent Ambulation Assistive Devices: Walker, Standard Transfers Ability Ability to Transfer In/Out of Chair: Independent Exam Const: General: comfortable and no acute distress HENMT: General nose exam: Normal nares present Mouth: Yes moist mucous membranes Eyes: General: appearance normal, both eyes and all related structures Neck: Neck: supple and no JVD Resp: Effort & Inspection: normal respiratory effort Auscultation: clear to auscultation bilaterally Cardio: Rate: regular rate Rhythm: regular rhythm GI: GI Palp: Yes Soft to palpation Auscultation: normal bowel sounds Skin: General skin exam: normal color and no rashes or lesions noted Neuro: Other: patient is awake alert well oriented has a left footdrop with AFO which has been stable generalized weakness has significantly improved his walking quite a bed and is happy with the care he has received Extrem: General: normal to inspection Other: left foot drop stable with the AFO Psych: Mental Status: mental status grossly normal Objective Data Vital Signs Vital Signs: Vital Signs - 24 hr 05/08/20 22:00 05/09/20 06:00 05/09/20 10:05 Temperature 36.9 C 36.1 C L Pulse Rate 79 64 Respiratory Rate 20 16 Blood Pressure 101/73 118/66 Pulse Oximetry 94 97 93 05/09/20 14:00 Temperature 36.8 C Pulse Rate 80 Respiratory Rate 18 Blood Pressure 108/66 Pulse Oximetry 94 Intake/Output Intake/Output: Intake & Output 05/06/20 05/07/20 05/08/20 05/09/20 23:59 23:59 23:59 23:59 Intake Total 960 480 720 480 Balance 960 480 720 480 Meds/Results Medications: Active Medications Generic Name Dose Route Start Last Admin Trade Name Freq PRN Reason Stop Dose Admin Acetaminophen 1,000 mg 04/27/20 00:00 05/09/20 12:06 Tylenol Tablet PO 1,000 mg Q6HR CEFERINO Administration Albuterol 1 puff 04/26/20 19:08 Proventil Hfa INHALATION Q6H PRN shortness of breath or wheezing Apixaban 2.5 mg 04/26/20 21:00 05/09/20 08:59 Eliquis PO 2.5 mg Q12HR CEFERINO Administration Aspirin 81 mg 04/26/20 21:00 05/08/20 20:08 Aspirin Chewable PO 81 mg HS CEFERINO Administration Budesonide/Formoterol Fumarate 2 puff 04/26/20 20:00 05/09/20 10:05 Symbicort 160-4.5 Mcg (*Sp) Inhaler INHALATION 2 puff Q12HRT CEFERINO Administration Diazepam 2 mg 04/26/20 21:00 05/09/20 08:58 Valium Po PO 2 mg Q12HR CEFERINO Administration Escitalopram Oxalate 5 mg 04/27/20 09:00 05/09/20 08:59 Lexapro PO 5 mg DAILY CEFERINO Administration Famotidine 20 mg 04/26/20 21:00 05/09/20 08:59 Pepcid PO 20 mg Q12HR CEFERINO Administration Fluticasone Propionate 1 spray 05/04/20 21:00 05/09/20 08:59 Flonase 0.05% Nasal [place] NASAL 1 spray Q12H CEFERINO Administration Lisinopril 10 mg 04/27/20 09:00 05/09/20 09:00 Prinivil PO 10 mg DAILY CEFERINO Administration Loratadine 10 mg 04/27/20 09:00 05/09/20 08:59 Claritin PO 10 mg QAM CEFERINO Administration Magnesium Hydroxide 30 ml 04/26/20 19:08 Milk Of Magnesia PO BID PRN Constipation Oxycodone HCl 5 mg 04/28/20 17:00 05/09/20 14:15 Roxicodone Ir Tablet PO 5 mg Q4HR CEFERINO Administration Polyethylene Glycol 17 gm 05/03/20 17:55 Coy
[2020-05-09 19:28] VITALS: PULSE 78; O2SAT 93
[2020-05-09] MEDS: SIMVASTATIN 10 MG TABLET PO (20:10)
[2020-05-09] MEDS: ASPIRIN 81 MG CHEWABLE TABLET PO (20:10)
[2020-05-09 21:05] VITALS: BP 148/82; PULSE 83; RESP 20; TEMP 37.2; O2SAT 97
[2020-05-10 05:43] VITALS: BP 118/57; PULSE 68; RESP 20; TEMP 36.2; O2SAT 95
[2020-05-10] MEDS: TIZANIDINE HCL 2 MG TABLET PO ×3 (05:51→12:39)
[2020-05-10] MEDS: oxyCODONE HCL (*CRX) 5 MG TAB IR PO ×3 (05:51→12:39)
[2020-05-10] MEDS: ACETAMINOPHEN 500 MG TABLET 1000 MG PO ×2 (05:51→12:39)
[2020-05-10] MEDS: FLUTICASONE PROPIONATE 0.05% NA SPR 16 GM BTL (*BKC) 1 SPRAY NASAL (08:44)
[2020-05-10] MEDS: FAMOTIDINE 20 MG TABLET PO (08:45)
[2020-05-10] MEDS: APIXABAN 2.5 MG TABLET PO (08:45)
[2020-05-10] MEDS: lisinopriL 10 MG TABLET PO (08:45)
[2020-05-10] MEDS: diazePAM (*CRX) 2 MG TABLET PO (08:45)
[2020-05-10] MEDS: ESCITALOPRAM OXALATE 5 MG TABLET PO (08:45)
[2020-05-10] MEDS: LORATADINE 10 MG TABLET PO (08:45)
--- NOTE | 2020-05-10 11:00 | WPDNEURORHBP ---
Subjective Date/time seen: 05/10/20 11:00 75 years old with left femur intertrochanteric fracture with fetus angulation requiring open reduction and internal fixation along with the history of 1. Hypertension 2. Sleep apnea 3. Left foot drop secondary to old back surgery and 4. History of bronchial asthma. Routine labs with hemoglobin 10.2 normal basic metabolic panel. Review of Systems Review of Systems: All systems reviewed & are unremarkable except as noted in HPI and below Functional Status Ambulation Ability Ability to Ambulate 10 Feet: Independent Ability to Ambulate 50 Feet With 2 Turns: Independent Ability to Ambulate 150 Feet: Independent Ambulation Assistive Devices: Walker, Standard Transfers Ability Ability to Transfer In/Out of Chair: Independent Exam Narrative: Exam Narrative: Examination reveals him to be awake alert comfortable in no acute distress ear nose throat examination normal with moist mucous membranes no running nose. Eyes normal. Neck is supple with no JVD. Heart regular with no murmur. Lungs clear with no rhonchi or crepitation. Abdomen is soft with normal bowel sounds no organomegaly. Skin clear. Neurological examination reveals him to be with the left foot drop with AFO and generalized weakness. Objective Data Vital Signs Vital Signs: Vital Signs - 24 hr 05/09/20 14:00 05/09/20 19:28 05/09/20 21:05 Temperature 36.8 C 37.2 C Pulse Rate 80 78 83 Respiratory Rate 18 20 Blood Pressure 108/66 148/82 H Pulse Oximetry 94 93 97 05/10/20 05:43 Temperature 36.2 C L Pulse Rate 68 Respiratory Rate 20 Blood Pressure 118/57 L Pulse Oximetry 95 Intake/Output Intake/Output: Intake & Output 05/07/20 05/08/20 05/09/20 05/10/20 23:59 23:59 23:59 23:59 Intake Total 480 720 720 240 Balance 480 720 720 240 Meds/Results Medications: Active Medications Generic Name Dose Route Start Last Admin Trade Name Freq PRN Reason Stop Dose Admin Acetaminophen 1,000 mg 04/27/20 00:00 05/10/20 05:51 Tylenol Tablet PO 1,000 mg Q6HR CEFERINO Administration Albuterol 1 puff 04/26/20 19:08 Proventil Hfa INHALATION Q6H PRN shortness of breath or wheezing Apixaban 2.5 mg 04/26/20 21:00 05/10/20 08:45 Eliquis PO 2.5 mg Q12HR CEFERINO Administration Aspirin 81 mg 04/26/20 21:00 05/09/20 20:10 Aspirin Chewable PO 81 mg HS CEFERINO Administration Budesonide/Formoterol Fumarate 2 puff 04/26/20 20:00 05/10/20 07:46 Symbicort 160-4.5 Mcg (*Sp) Inhaler INHALATION 2 puff Q12HRT CEFERINO Administration Diazepam 2 mg 04/26/20 21:00 05/10/20 08:45 Valium Po PO 2 mg Q12HR CEFERINO Administration Escitalopram Oxalate 5 mg 04/27/20 09:00 05/10/20 08:45 Lexapro PO 5 mg DAILY CEFERINO Administration Famotidine 20 mg 04/26/20 21:00 05/10/20 08:45 Pepcid PO 20 mg Q12HR CEFERINO Administration Fluticasone Propionate 1 spray 05/04/20 21:00 05/10/20 08:44 Flonase 0.05% Nasal [place] NASAL 1 spray Q12H CEFERINO Administration Lisinopril 10 mg 04/27/20 09:00 05/10/20 08:45 Prinivil PO 10 mg DAILY CEFERINO Administration Loratadine 10 mg 04/27/20 09:00 05/10/20 08:45 Claritin PO 10 mg QAM CEFERINO Administration Magnesium Hydroxide 30 ml 04/26/20 19:08 Milk Of Magnesia PO BID PRN Constipation Oxycodone HCl 5 mg 04/28/20 17:00 05/10/20 08:45 Roxicodone Ir Tablet PO 5 mg Q4HR CEFERINO Administration Polyethylene Glycol 17 gm 05/03/20 17:55 Miralax PO QAM PRN Constipation Senna/Docusate Sodium 2 tab 05/03/20 17:55 05/09/20 09:00 Senokot S Tablet PO 2 tab BID PRN Administration Constipation Simvastatin 10 mg 04/26/20 21:00 05/09/20 20:10 Zocor PO 10 mg HS CEFERINO Administration Tizanidine HCl 2 mg 05/04/20 13:00 05/10/20 08:45 Zanaflex PO 2 mg Q4HR CEFERINO Administration Progress Note: A&P Assessment and Plan (1) Fusion of lumbar spine: Code(s):
--- NOTE | 2020-05-10 11:20 | P.PNOP_ITS ---
Progress Note: A&P Additional Plan POD 17 alert doing well with PT, wds-dry ,no swelling in LE, plan to discharge today, will plan to do xrays before leaving Subjective Subjective Date/Time Seen: 05/10/20 11:20 Objective Data Vital Signs Vital Signs: Vital Signs - 24 hr 05/09/20 14:00 05/09/20 19:28 05/09/20 21:05 Temperature 36.8 C 37.2 C Pulse Rate 80 78 83 Respiratory Rate 18 20 Blood Pressure 108/66 148/82 H Pulse Oximetry 94 93 97 05/10/20 05:43 Temperature 36.2 C L Pulse Rate 68 Respiratory Rate 20 Blood Pressure 118/57 L Pulse Oximetry 95 Intake/Output Intake/Output: Intake & Output 05/07/20 05/08/20 05/09/20 05/10/20 23:59 23:59 23:59 23:59 Intake Total 480 720 720 240 Balance 480 720 720 240 Meds/Results Medications: Active Medications Generic Name Dose Route Start Last Admin Trade Name Freq PRN Reason Stop Dose Admin Acetaminophen 1,000 mg 04/27/20 00:00 05/10/20 05:51 Tylenol Tablet PO 1,000 mg Q6HR CEFERINO Administration Albuterol 1 puff 04/26/20 19:08 Proventil Hfa INHALATION Q6H PRN shortness of breath or wheezing Apixaban 2.5 mg 04/26/20 21:00 05/10/20 08:45 Eliquis PO 2.5 mg Q12HR CEFERINO Administration Aspirin 81 mg 04/26/20 21:00 05/09/20 20:10 Aspirin Chewable PO 81 mg HS CEFERINO Administration Budesonide/Formoterol Fumarate 2 puff 04/26/20 20:00 05/10/20 07:46 Symbicort 160-4.5 Mcg (*Sp) Inhaler INHALATION 2 puff Q12HRT CEFERINO Administration Diazepam 2 mg 04/26/20 21:00 05/10/20 08:45 Valium Po PO 2 mg Q12HR CEFERINO Administration Escitalopram Oxalate 5 mg 04/27/20 09:00 05/10/20 08:45 Lexapro PO 5 mg DAILY CEFERINO Administration Famotidine 20 mg 04/26/20 21:00 05/10/20 08:45 Pepcid PO 20 mg Q12HR CEFERINO Administration Fluticasone Propionate 1 spray 05/04/20 21:00 05/10/20 08:44 Flonase 0.05% Nasal [place] NASAL 1 spray Q12H CEFERINO Administration Lisinopril 10 mg 04/27/20 09:00 05/10/20 08:45 Prinivil PO 10 mg DAILY CEFERINO Administration Loratadine 10 mg 04/27/20 09:00 05/10/20 08:45 Claritin PO 10 mg QAM CEFERINO Administration Magnesium Hydroxide 30 ml 04/26/20 19:08 Milk Of Magnesia PO BID PRN Constipation Oxycodone HCl 5 mg 04/28/20 17:00 05/10/20 08:45 Roxicodone Ir Tablet PO 5 mg Q4HR CEFERINO Administration Polyethylene Glycol 17 gm 05/03/20 17:55 Miralax PO QAM PRN Constipation Senna/Docusate Sodium 2 tab 05/03/20 17:55 05/09/20 09:00 Senokot S Tablet PO 2 tab BID PRN Administration Constipation Simvastatin 10 mg 04/26/20 21:00 05/09/20 20:10 Zocor PO 10 mg HS CEFERINO Administration Tizanidine HCl 2 mg 05/04/20 13:00 05/10/20 08:45 Zanaflex PO 2 mg Q4HR CEFERINO Administration
--- NOTE | 2020-05-14 14:08 | PM.DS ---
DS: Admitting Diagnosis Admitting Diagnosis Admitting Diagnosis: l hip fx DS: Discharge Diagnosis Discharge Diagnosis (1) Fusion of lumbar spine: Code(s): M43.26 - Fusion of spine, lumbar region Status: Acute (2) Left foot drop: Code(s): M21.372 - Foot drop, left foot Status: Acute (3) Closed fracture of left hip: Code(s): S72.002A - Fracture of unspecified part of neck of left femur, initial encounter for closed fracture Status: Acute (4) HTN (hypertension): Code(s): I10 - Essential (primary) hypertension Status: Acute (5) Left leg weakness: Code(s): R29.898 - Other symptoms and signs involving the musculoskeletal system Status: Acute (6) Obstructive sleep apnea: Code(s): G47.33 - Obstructive sleep apnea (adult) (pediatric) Status: Acute (7) Prostate cancer: Code(s): C61 - Malignant neoplasm of prostate Status: Acute (8) Shortness of Breath: Code(s): R06.02 - Shortness of breath Status: Acute DS: Summary Hospital Course Reason for hospitalization: this 75-year-old gentleman is was admitted after having had surgery for his left hip fracture along with the other medical issues as mentioned above patient received the medical management of his underlying medical issues and PT OT and gait training and was able to achieve the following independent measures Hospital Course: eating independent, oral hygiene independent, toileting setup, bathing setup, upper body dressing independent, lower body dressing supervision, footwear substantial, a rolling in bed independent, sitting to lying independent, lying to sitting independent, sit to stand independent, chair transfers independently, toilet transfers independent, car transfers independent, walking 10 feet independent, walking 50 feet with 2 stones independent, walking 150 feet independent, walking 10 feet uneven surfaces independent, the car better step setup, 4 steps patient was unable to 12 steps patient was unable to be Caren object independent wheelchair 50 feet independent, wheelchair 150 feet independent, Patient was sent home with home health with instructions to follow up with the surgeon and also follow-up with the primary care physician Status at Discharge Cognitive/behavioral status at discharge: patient was stable and behavior really and cognitively intact prior to her discharge Time Spent with Patient Time attestation: Total time spent providing and/or coordinating discharge services: Exam Narrative: Exam Narrative: patient was awake alert well oriented time place and person has and a normal speech and language function normal cranial examination symmetrical strength of course limited due to the left hip fracture have a bearing status the left foot drop with the AFO ENT examination is normal, neck is supple, lungs are clear cardiovascular examination negative abdomen is soft nontender extremities reveal left foot drop with the AFO long-standing duration and 1+ reflexes Patient was stable oriented and in good shape improve shape to be discharged home with home health to follow Discharge Plan Discharge Attending physician on discharge: Cesario Jordan Consulting providers: Nguyễn Cee Discharging Clinician: Cesario Jordan Anticipated Discharge Date/Time: 05/10/20 16:36 Patient Disposition: Home Health Service Activity: may shower and no driving Diet: as tolerated Wound Care Instructions: follow printed instructions Discharge Instructions: Per Care Coordination: Home Health services have been arranged through [facility]. [facility] can be contacted at [phone]. Patient Instructions: Antibiotic Form, Apixaban (By mouth), Pain Management (DC) Stand Alone Forms: General Discharge Information Follow-up/Referrals: PCP [Other] (Follow-up with primary care physician upon discharge from [facility]/Rehab in 1-2 weeks for general health cristóbal
== END 2020-05-10 14:10 | disposition home health service (06) | DRG 561 ==
PROVIDERS: Admitting Provider Psychiatry & Neurology Neurology; Visit Provider Psychiatry & Neurology Neurology
DX: S72.142D Displaced intertrochanteric fracture of left femur, subsequent encounter for closed fracture with routine healing (principal); W19.XXXD Unspecified fall, subsequent encounter; D64.9 Anemia, unspecified; E78.5 Hyperlipidemia, unspecified; F90.9 Attention-deficit hyperactivity disorder, unspecified type; F32.9 Major depressive disorder, single episode, unspecified; G47.33 Obstructive sleep apnea (adult) (pediatric); I10 Essential (primary) hypertension; J45.909 Unspecified asthma, uncomplicated; K59.00 Constipation, unspecified; M54.32 Sciatica, left side; M21.372 Foot drop, left foot; R79.89 Other specified abnormal findings of blood chemistry; R06.02 Shortness of breath; R73.09 Other abnormal glucose; Z85.46 Personal history of malignant neoplasm of prostate; Z98.1 Arthrodesis status; Z23 Encounter for immunization
CPT/HCPCS: 36415; 73502; 80048; 85025; 90471; 90653; 94640; 97110; 97116; 97161; 97166; 97530; 97535; A9270; G0008

== ENCOUNTER 2020-11-12 11:19 | Outpatient (CLI) | payer MEDICARE, SELFPAY ==
[2020-11-12 12:08] LABS: Basophils Absolute Auto 0.1 K/mm3 (0.0-0.1); Basophils Percent Auto 1.2 % (0.2-1.2); Eosinophils Absolute Auto 0.3 K/mm3 (0-0.3); Eosinophils Percent Auto 3.6 % (0-4.4); Hematocrit 44.2 % (42.0-52.0); Hemoglobin 14.8 g/dL (14.0-18.0); Immature Granulocyte Percent A 2.2 % (0-0.5); Lymphocytes Absolute Auto 1.42 K/mm3 (0.9-3.2); Lymphocytes Percent Auto 15.5 % (18.3-44.2); Mean Corpuscular HGB Conc 33.5 g/dl (32-36); Mean Corpuscular Hemoglobin 31.5 pg (26-34); Mean Platelet Volume 9.3 fl (7.4-10.4); Monocytes Absolute Auto 0.8 K/mm3 (0.1-0.6); Neutrophils Absolute Auto 6.3 K/mm3 (1.3-6.7); Neutrophils Percent Auto 68.5 % (45.5-73.1); Platelet Count Result 257 k/mm3 (150-375); Red Cell Distribution Width 13.2 % (11.5-14.5); White Blood Count 9.2 K/mm3 (4.5-10.0)
[2020-11-12 12:29] LABS: CRP 0.8 mg/dL (<1.0)
[2020-11-12 12:46] LABS: Erythrocyte Sedimentation Rate 18 mm/hr (0-20)
== END 2020-11-12 11:20 | disposition home or self-care (01) ==
PROVIDERS: PCP Internal Medicine; Visit Provider Orthopaedic Surgery
DX: M25.552 Pain in left hip (principal)
CPT/HCPCS: 36415; 85025; 85652; 86140

== ENCOUNTER 2022-05-25 10:43 | Outpatient (CLI) | payer MEDICARE, SELFPAY ==
[2022-05-25 11:49] LABS: Anion Gap 14 mmol/L (8-16); Blood Urea Nitrogen 25 mg/dL (9-20); Calcium 9.2 mg/dL (8.4-10.2); Carbon Dioxide 22 mmol/L (22-30); Chloride 95 mmol/L (98-107); Estimated Glomerular Filt Rate > 60; Glucose 104 mg/dL (65-110); Potassium 5.1 mmol/L (3.4-5.0); Sodium 131 mmol/L (137-145)
== END 2022-05-25 10:44 | disposition home or self-care (01) ==
PROVIDERS: Visit Provider Internal Medicine Cardiovascular Disease
DX: I10 Essential (primary) hypertension (principal)
CPT/HCPCS: 36415; 80048

== ENCOUNTER 2024-03-25 13:50 | Outpatient (CLI) | payer MEDICARE, SELFPAY ==
--- NOTE | 2024-04-18 15:20 | WPDSLEEPSTUD ---
Sleep Study Date of Study: 03/25/24 Ordering Provider: CLARA Carlson Interpreting Physician: Marline Mclean DO Sleep Study Type: Split Polysomnogram Height: 1.88 m Weight: 115.672 kg Body Mass Index: 32.7 Neck Circumference (inches): 19 [place]: 7 Reason for Sleep Study Previous diagnosis of RICH. Was on CPAP but machine recalled and never got a replacement Sleep History The patient is a 79 year old male that had a sleep study ordered by the pulmonary group for evaluation of sleep apnea. The patient denies awakening from sleep short of breath. He occasionally awakens at night with heartburn, belching or cough. He frequently snores and it is constantly loud enough that others complain her he denies having trouble sleeping when he has a cold. He denies waking up gasping for air throughout the night. He occasionally has breathing problems at night observed by himself or others. He occasionally sweats excessively at night. He denies having heart palpitations or irregular heartbeats during the night. He denies falling asleep during the day and while driving. He frequently experiences loss of muscle tone when extremely emotional. He occasionally has trouble at school or work due to sleepiness. He denies feeling unable to move while waking up or falling asleep. He frequently experiences vivid dreamlike scenes upon awakening or falling asleep. He denies feeling afraid of going to sleep. He occasionally has nightmares and occasionally remembers his dreams. He frequently has thoughts racing through his mind. He frequently feels sad or depressed. He occasionally has anxiety. He occasionally has muscular tension. He denies noticing parts of his body jerk. He denies kicking during the night. He denies having crawling and aching feelings in his legs and denies having leg pain during the night. He occasionally grinds his teeth during sleep and constantly awakens with morning jaw pain. He is constantly bothered by pain during the day but rarely awakened by pain during the night. He constantly wakes up feeling stiff in the morning. He constantly wakes up with sore or achy muscles. He constantly wakes up with pain in the neck, spine and other joints. He goes to bed at 10:30 p.m. on both weekdays and weekends. It takes him 30-60 minutes to fall asleep. He wakes up 4 times throughout the night to urinate and is able to fall back asleep immediately. He wakes up at 8:00 a.m. on both weekdays and weekends. He typically gets 7-8 hours of sleep per night. He will stay in bed for 5-10 minutes after waking up in the morning. He currently lives with his . He denies consuming any caffeinated beverages within 2 hours of bedtime. He denies engaging in physical exercise before bedtime. He will read and watch television before falling asleep. He will take naps in afternoon or the evening and they are refreshing. He consumes 1 cup of coffee per day. He consumes a few oz of an alcoholic beverage twice per week. He denies tobacco and recreational drug use. [facility] Past Medical History Medical History ADHD Asthma At risk for falls Closed fracture of left hip Constipation Depression Dyspnea Elevated blood pressure reading Fusion of lumbar spine High cholesterol History of MRSA infection HTN (hypertension) Left foot drop Left leg weakness Left leg weakness Left sciatic nerve pain Obstructive sleep apnea Prostate cancer Shortness of Breath Sleep apnea Snoring Surgical History Surgical History FH: total knee replacement H/O arthroscopy of knee H/O laminectomy Family History Family History Mother Colon cancer Father Acute myocardial infarction Heart disease Cerebrovascular accident Social History Social History (Reviewed 04/18/24 @ 15:27 b
[2024-04-19 14:35] VITALS: BMI 32.7
== END 2024-03-26 07:37 | disposition home or self-care (01) ==
PROVIDERS: Visit Provider Physician Assistant
DX: G47.33 Obstructive sleep apnea (adult) (pediatric) (principal)
CPT/HCPCS: 95811

== ENCOUNTER 2024-03-26 12:47 | Outpatient (CLI) | payer MEDICARE, SELFPAY ==
--- NOTE | ~2024-03-26 | MR_ITS ---
EXAMINATION: MR lumbar spine wo/w con DATE: 03/26/2024 13:45 INDICATION: Spinal stenosis, lumbar region with neurogenic claudication. Low back pain. Left leg numb ness. Right foot drop. TECHNIQUE: Magnetic resonance imaging (MRI) of the lumbar spine was performed without and with 20 mL MultiHance intravenous contrast. COMPARISON: None FINDINGS: 19 degrees levoscoliosis of thoracolumbar spine. There is 3 mm retrolisthesis of T11 and T1 2 and T12 on L1, 7 mm retrolisthesis of L2 on L3, and 4 mm anterolisthesis of L5 on S1. There is mild chronic height loss of T10, T11, and T12 vertebral bodies. There is moderately decreased disc height at T10-T11 and severely decreased disc height from T11-T12 through L5-S1 with endplate remodeling. T he distal spinal cord signal intensity is normal. The conus medullaris is at T12-L1. The following di sc levels are specifically discussed: L1-L2: The disc is bulging. There is severe bilateral facet joint osteoarthritis. There is moderate r ight and mild left neural foraminal stenosis. There is mild central canal stenosis. L2-L3: The disc is bulging. There is severe right and moderate left facet joint osteoarthritis. There is moderate bilateral neural foraminal stenosis. There is mild central canal stenosis. L3-L4: The disc is bulging and has an annular fissure. There is severe bilateral facet joint osteoart hritis. There is moderate bilateral neural foraminal stenosis. There is moderate central canal stenos is. L4-L5: The disc is bulging and has an annular fissure. There is severe bilateral facet joint osteoart hritis. There is moderate bilateral neural foraminal stenosis. There is mild central canal stenosis. L5-S1: The disc is bulging and has an annular fissure. There is severe bilateral facet joint osteoart hritis. There is moderate bilateral neural foraminal stenosis. There is severe central canal stenosis . IMPRESSION: 1. Severe lumbar and lower thoracic spondylosis. 2. Thoracolumbar levoscoliosis. Reviewed, dictated and finalized at location A.
== END 2024-03-26 12:48 ==
DX: M48.062 Spinal stenosis, lumbar region with neurogenic claudication (principal); M43.06 Spondylolysis, lumbar region; M43.04 Spondylolysis, thoracic region; M41.85 Other forms of scoliosis, thoracolumbar region
CPT/HCPCS: 72158; A9577

== ENCOUNTER 2025-01-06 13:45 | Outpatient (CLI) | payer MEDICARE, SELFPAY ==
--- NOTE | ~2025-01-06 | MR_ITS ---
MRI of the cervical spine Clinical History: Spinal stenosis Technique: Axial T2-weighted and gradient images, and sagittal T1-weighted, T2-weighted, and STIR margie ges were acquired. Findings: There is no fracture or subluxation of the cervical spine. Vertebral bodies maintain normal height and alignment. No bone marrow signal abnormality seen. At C2-C3, there is minimal disc bulge. No spinal canal stenosis, cord compression, or neural foramina l narrowing. At C3-C4, there is moderate to advanced degenerative disc narrowing. There is minimal disc osteophyte complex. There is minimal facet arthropathy. There is left neural foraminal narrowing. Right neural foramen may be minimally narrowed. There is no canal stenosis or cord compression. At C4-C5, there is advanced degenerative disc narrowing. There is minimal disc bulge and mild facet a rthropathy. There is bilateral neural foraminal narrowing, left worse than right. No canal stenosis o r cord compression. At C5-C6, there is advanced generative disc narrowing with mild disc osteophyte complex. There is katarzyna ateral neural foraminal narrowing. There is minimal flattening of the ventral cord with minimal canal stenosis. At C6-C7, there is degenerative disc narrowing with disc osteophyte complex. There is mild to moderat e canal stenosis and minimal flattening the ventral cord. There is bilateral neural foraminal narrowi ng. No abnormal signal seen in the spinal cord. Paravertebral soft tissues are unremarkable. Impression: Moderate degenerative spondylosis, as detailed above. Reviewed, dictated and finalized at [facility]. Impression: Moderate degenerative spondylosis, as detailed above.
== END 2025-01-06 13:46 | disposition home or self-care (01) ==
LOC: MICIMG 13:46
DX: M47.812 Spondylosis without myelopathy or radiculopathy, cervical region (principal); M48.02 Spinal stenosis, cervical region
CPT/HCPCS: 72141